=== PATIENT | male | born 1950 | race Caucasian/White ===

== ENCOUNTER 2019-01-24 16:21 | Inpatient (IN) | payer OTHER, MEDICARE ==
[~2019-01-24] VITALS: Ht 182.9 cm; Wt 80.1 kg
[~2019-01-24 16:21] MED LIST: CALC1.25T PO; CEPH500 PO; FURO40 PO; LACT10SY PO; MILK THISTLE; MORP30ER PO; OMEP20ER PO; SERT25 PO; SPIR50 PO; VITB100 PO
[2019-01-24] MEDS ORDERED: ACET325 PO (16:29)
[2019-01-24] MEDS ORDERED: AZIT250 PO (16:29)
[2019-01-24] MEDS ORDERED: BUME2 PO (16:30)
[2019-01-24] MEDS ORDERED: BACL10 PO (16:30)
[2019-01-24] MEDS ORDERED: CEFD300 PO (16:31)
[2019-01-24] MEDS ORDERED: CYAN500 PO (16:32)
[2019-01-24] MEDS ORDERED: GABA300 PO (16:32)
[2019-01-24] MEDS ORDERED: MELA3 PO (16:33)
[2019-01-24] MEDS ORDERED: PRAZ2 PO (16:34)
[2019-01-24] MEDS ORDERED: POTCHL20ER PO (16:34)
[2019-01-24] MEDS ORDERED: PROP10 PO (16:34)
[2019-01-24] MEDS ORDERED: RISP2 PO (16:35)
[2019-01-24 17:56] LABS: BASOPHILS ABSOLUTE AUTO 0.03 K/mm3 (0.00-0.23); BASOPHILS PERCENT AUTO 0 % (0-2); EOSINOPHILS ABSOLUTE AUTO 0.35 K/mm3 (0.00-0.68); EOSINOPHILS PERCENT AUTO 3 % (0-6); Hematocrit 36.6 % (37.0-53.0); Hemoglobin 11.9 g/dL (13.5-17.5); IMMATURE GRAN ABSOLUTE AUTO 0.14 K/mm3 (0.00-0.10); IMMATURE GRAN PERCENT AUTO 1 % (0-1); LYMPHOCYTES ABSOLUTE AUTO 0.97 K/mm3 (0.84-5.20); LYMPHOCYTES PERCENT AUTO 8 % (21-46); MONOCYTES PERCENT AUTO 9 % (4-13); Mean Corpuscular HGB 33.1 pg (26.0-34.0); Mean Corpuscular HGB Conc 32.5 g/dL (31.5-36.5); Mean Corpuscular Volume 102 fL (80-100); NEUTROPHILS ABSOLUTE AUTO 10.06 K/mm3 (1.96-9.15); NEUTROPHILS PERCENT AUTO 79 % (41-73); Platelet Count 229 K/mm3 (150-400); RDW Coefficient Variation 14.6 % (11.7-14.2); RDW Standard Deviation 55.5 fL (35.1-46.3); White Blood Cell Count 12.75 K/mm3 (4.00-11.30)
[2019-01-24 18:07] LABS: Prothrombin Time Results 10.6 Sec (9.7-11.5)
[2019-01-24 18:11] LABS: Alanine Aminotransfer (ALT/SGP 32 U/L (12-78); Albumin, Blood 2.6 g/dL (3.4-5.0); Albumin/Globulin Ratio 0.8 (0.8-1.8); Alk Phos 121 U/L (50-136); Anion Gap 7 mmol/L (6-16); Aspartate Aminotrans (AST/SGOT 41 U/L (12-37); Blood Urea Nitrogen 27 mg/dL (8-24); Bun/Creatinine Ratio 24.1 (12.0-20.0); CO2, Blood 28 mmol/L (21-32); Calcium, Blood 8.8 mg/dL (8.5-10.1); Chloride, Blood 104 mmol/L (98-108); Creatinine, Blood 1.12 mg/dL (0.60-1.20); Globulin, Blood 3.1 g/dL (2.2-4.0); Glomerular Filtration Rate >60 (60-); Glucose, Blood 84 mg/dL (70-99); Potassium, Blood 3.5 mmol/L (3.5-5.5); Sodium, Blood 139 mmol/L (136-145); Total Protein, Blood 5.7 g/dL (6.4-8.2)
[2019-01-24] MEDS ORDERED: FOLI1 PO (19:48)
[2019-01-24] MEDS ORDERED: FISH OIL 1,001000 MG PO (19:50)
--- NOTE | 2019-01-24 21:30 | NUR ---
RECEIVED HAND OFF FROM ER NURSE USING SBAR. TRANSPORTED TO ROOM 211 VIA STRETCHER. TRANSFERED TO BED WITH FULL STAFF ASSIST, TOLERATED WELL. ADMISSION ASSESSMENT IN PROGRESS. DENIES FURTHER NEEDS AT THIS TIME. SAFTY MEASURES IN PLACE. WILL CONTINUE TO MONITOR.
[2019-01-25 05:04] LABS: Hematocrit 34.8 % (37.0-53.0); Hemoglobin 11.3 g/dL (13.5-17.5); Mean Corpuscular HGB 33.2 pg (26.0-34.0); Mean Corpuscular HGB Conc 32.5 g/dL (31.5-36.5); Mean Corpuscular Volume 102 fL (80-100); Platelet Count 207 K/mm3 (150-400); RDW Coefficient Variation 14.8 % (11.7-14.2); RDW Standard Deviation 55.7 fL (35.1-46.3); White Blood Cell Count 8.91 K/mm3 (4.00-11.30)
--- NOTE | 2019-01-25 05:12 | NUR ---
TO KEEP PATIENT MOUTH MOIST, AFTER I OFFERED TO TAKE AWAY AT MIDNIGHT.
[2019-01-25 05:46] LABS: Anion Gap 7 mmol/L (6-16); Blood Urea Nitrogen 31 mg/dL (8-24); Bun/Creatinine Ratio 25.8 (12.0-20.0); CO2, Blood 27 mmol/L (21-32); Calcium, Blood 8.7 mg/dL (8.5-10.1); Chloride, Blood 105 mmol/L (98-108); Glomerular Filtration Rate >60 (60-); Glucose, Blood 112 mg/dL (70-99); Potassium, Blood 3.8 mmol/L (3.5-5.5); Sodium, Blood 139 mmol/L (136-145)
--- NOTE | 2019-01-25 06:40 | NUR ---
LYING ON RIGHT SIDE WITH EYES CLOSED. NO CHANGES SINCE ADMISSION TO UNIT. DENIES FURTHER NEEDS AT THIS TIME. SAFETY MEASURES IN PLACE. WILL GIVE HAND OFF TO ONCOMING SHIFT USING SBAR.
--- NOTE | 2019-01-25 09:33 | NUR ---
PT ASSESSMENT. PT REPORTS UNABLE TO WIGGLE TOES ON RIGHT FOOT AND MOVE RIGHT ANKLE. REPORTS THIS IS NORMAL. PT REPORTS USES CANE AT HOME TO AMBULATE. CONDOM CATH PLACED AT IN. IN PLACE, SECURED ON LEG, DRAINING, AND OFF FLOOR.
--- NOTE | 2019-01-25 11:36 | NUR ---
CONSULT: CONSULT CALLED TO ORTHOPEDIC STAVE CUTTER DOCTOR AT THIS TIME.
--- NOTE | 2019-01-25 18:24 | NUR ---
SHIFT SUMMARY PT EATING AND DRINKING WELL. PT HAS CONDOM CATH ON THAT WAS PLACED AT THE UT. CATH IN PLACE, SECURED TO LEG, DRAINING. NO BM TODAY. PT REPOSITIONED SEVERAL TIMES TODAY, BUT REFUSED REPOSITIONING AT OTHER TIMES. ASSISTED WITH ADL'S. DRESSINGS CHANGED TODAY. PT MEDICATED FOR PAIN PRN. AND VISITORS VISITED PT TODAY.
--- NOTE | 2019-01-26 08:02 | NUR ---
SHIFT SUMMARY PT A&O X4 T/O SHIFT. PT REPORTED SHORT, MILD SPASM TO LOWER EXT X1. PAIN IN BLE/PELVIS MANGED PER EMAR AND POSITIONING. LS CLEAR, I/S USE ENCOURAGED. NO ACUTE CHANGES. CONT.-OX IN PLACE; O2 SATS GREATER THAN 90% T/O SHIFT; PT DENIES SOB AND CP. DRESSINGS TO BUE DRY AND INTACT WITH SCANT SS DRAINAGE. PT ASSISTED WITH REPOSITIONING T/O SHIFT; PT ABLE TO MAKE SLIGHT ADJUSTMENTS ON OWN EARLY AM. SCD'S TO BLE'S. CALL LIGHT IN REACH; PT DEMONSTRATES USE. REPORT GIVEN TO DAY SHIFT RN.
--- NOTE | 2019-01-26 11:07 | NUR ---
LASIX/PAIN MANAGEMENT DR. KLEIN NOTIFIED THAT PT TAKES LASIX 80MG DAILY AND WOULD LIKE THAT RESTARED WHILE HE IS IN THE HOSPITAL. DR. KLEIN STATED SHE WOULD START A LOWER DOSE SINCE PT'S BP HAS BEEN LOW. DISCUSSED THAT PT HAD PAIN MANAGEMENT ISSUES WHILE WORKING WITH THERAPY. DR. KLEIN REPORTED SHE WOULD LOOK AT INCREASING PAIN MEDICATION. WILL CONTINUE TO MONITOR.
--- NOTE | 2019-01-26 18:18 | NUR ---
SHIFT SUMMARY PAIN HAS BEEN MANAGED WITH PO PAIN MEDICATION. PT IS A 1 ASSIST WITH GAIT BELT AND WALKER. HE HAS DIFFICULTY AMBULATING/GETTING TO A STANDING POSITION R/T PAIN. HE IS ABLE TO DO TRANSFERS WELL BUT IS HAS DIFFICULTY AMBULATING. VSS. WILL MONITOR UNTIL REPORT TO ONCOMING RN.
[2019-01-27 05:12] LABS: BASOPHILS ABSOLUTE AUTO 0.06 K/mm3 (0.00-0.23); BASOPHILS PERCENT AUTO 1 % (0-2); EOSINOPHILS ABSOLUTE AUTO 0.49 K/mm3 (0.00-0.68); EOSINOPHILS PERCENT AUTO 5 % (0-6); Hematocrit 33.3 % (37.0-53.0); Hemoglobin 10.8 g/dL (13.5-17.5); IMMATURE GRAN ABSOLUTE AUTO 0.16 K/mm3 (0.00-0.10); IMMATURE GRAN PERCENT AUTO 2 % (0-1); LYMPHOCYTES ABSOLUTE AUTO 1.26 K/mm3 (0.84-5.20); LYMPHOCYTES PERCENT AUTO 12 % (21-46); MONOCYTES ABSOLUTE AUTO 1.24 K/mm3 (0.16-1.47); MONOCYTES PERCENT AUTO 11 % (4-13); Mean Corpuscular HGB 33.1 pg (26.0-34.0); Mean Corpuscular HGB Conc 32.4 g/dL (31.5-36.5); Mean Corpuscular Volume 102 fL (80-100); Mean Platelet Volume 9.2 fL (9.1-12.4); NEUTROPHILS PERCENT AUTO 71 % (41-73); Platelet Count 181 K/mm3 (150-400); RDW Coefficient Variation 14.9 % (11.7-14.2); RDW Standard Deviation 56.6 fL (35.1-46.3); Red Blood Cell Count 3.26 M/mm3 (4.30-5.90); White Blood Cell Count 10.91 K/mm3 (4.00-11.30)
[2019-01-27 05:32] LABS: Anion Gap 8 mmol/L (6-16); Blood Urea Nitrogen 32 mg/dL (8-24); Bun/Creatinine Ratio 27.8 (12.0-20.0); CO2, Blood 24 mmol/L (21-32); Calcium, Blood 8.3 mg/dL (8.5-10.1); Chloride, Blood 102 mmol/L (98-108); Creatinine, Blood 1.15 mg/dL (0.60-1.20); Glomerular Filtration Rate >60 (60-); Glucose, Blood 98 mg/dL (70-99); Potassium, Blood 4.5 mmol/L (3.5-5.5); Sodium, Blood 134 mmol/L (136-145)
--- NOTE | 2019-01-27 07:34 | NUR ---
SUMMARY PT SLEPT QUIETLY TONIGHT. UNABLE TO TOLERATE CPAP.PT REPORTS MOVEMENT IS IMPROVING L LEG.
[2019-01-27] MEDS ORDERED: ASPI325EC PO (15:46)
[2019-01-27] MEDS ORDERED: Roxicodone5 MG PO (15:49)
--- NOTE | 2019-01-27 15:58 | NUR ---
DR. KLEIN NOTIFIED THAT DR. BELTRAN WANTED TO HOLD DISCHARGE UNTIL TOMORROW FOR FURTHER PHYSICAL THERAPY AND PAIN MANAGEMENT.
--- NOTE | 2019-01-27 18:48 | NUR ---
SHIFT SUMMARY PT ADMITTED WITH PUBIC FRACTURE, WALKER 1 PERSON ASSIST, CATHETER IN PLACE, PT CAN AMBULATE TO [facility] WITH ASSISTANCE.DIET: "HEPATIC (FS)" CONDOM CATH IN PLACE, HAS DIFFICULTY WITH CPAP, TEDS AND SCDs IN PLACE, PT IS DNR, DISCHARGE PLANNED FOR TOMORROW AM.
--- NOTE | 2019-01-27 19:42 | NUR ---
SHIFT SUMMARY PAIN HAS BEEN MANAGED WITH PO PAIN MEDICATION. OXY DOES CAUSE DROWSINESS SO NAPROXEN WILL BE STARTED TONIGHT. PT IS A 1 ASSIST WITH GAIT BELT AND WALKER. HE IS ABLE TO AMBULATE SHORT DISTANCES. PLAN FOR PT TO HAVE THERAPY TOMORROW THEN GO HOME. VSS. REPORT GIVEN TO SUZETTE TOVAR.
--- NOTE | 2019-01-28 04:54 | NUR ---
PT HAD NO ACUTE CHANGES T/O NIGHT. VSS. LUNGS CLEAR T/O, SATS >90% ON RA, CPAP IN PLACE WHILE SLEEPING. PT DECLINED NEED FOR PAIN MEDS T/O NIGHT. PT UP OOB W/FWW+SBA. NO CHANGE TO BLE EDEMA. PLAN TO D/C HOME TODAY. PT USING CALL LIGHT FOR ASSISTANCE, WILL CONT TO MONITOR UNTIL REP GIVEN TO ONCOMING RN.
--- NOTE | 2019-01-28 15:00 | NUR ---
DISCHARGE INSTRUCTIONS COMPLETED AND DISCUSSED WITH PT EXPRESSING UNDERSTANDING. NO NEW SCRIPTS EXCEPT OXYCODONE WHICH ORIGINAL GIVEN TO TO BE FILLED. PT ABLE TO TRANSFER SELF TO W/C AND THEN TO CAR SEAT WITH MINIMAL TO NO ASSISTANCE. WAS SLOW AND METHODICAL WITH PROCESS. TO CURB VIA W/C.
== END 2019-01-28 14:50 | disposition home health service (06) | DRG 184 ==
LOC: ER 16:21 → SURS 20:33
PROVIDERS: Emergency Medicine; Nurse Practitioner Acute Care; ADMIT Surgery
DX: S22.42XA Multiple fractures of ribs, left side, initial encounter for closed fracture (principal); S32.592A Other specified fracture of left pubis, initial encounter for closed fracture; E87.1 Hypo-osmolality and hyponatremia; F32.9 Major depressive disorder, single episode, unspecified; I95.9 Hypotension, unspecified; J44.9 Chronic obstructive pulmonary disease, unspecified; K74.60 Unspecified cirrhosis of liver; R91.1 Solitary pulmonary nodule; W11.XXXA Fall on and from ladder, initial encounter; M79.2 Neuralgia and neuritis, unspecified; G47.33 Obstructive sleep apnea (adult) (pediatric); D63.8 Anemia in other chronic diseases classified elsewhere; G62.9 Polyneuropathy, unspecified; Z66 Do not resuscitate; Z87.891 Personal history of nicotine dependence
CPT/HCPCS: 36415; 70450; 71260; 72125; 73564; 74177; 80048; 80053; 85025; 85027; 85610; 85730; 86850; 86900; 86901; 94760; 94762; 96374-59; 96375-59; 97110; 97116; 97161; 97166; 97530; 97535; 99285-25; J2405; J3010; Q9967

== ENCOUNTER 2019-03-31 16:16 | Inpatient (IN) | payer OTHER, MEDICARE ==
[~2019-03-31] VITALS: Ht 182.9 cm; Wt 95.8 kg
[~2019-03-31 16:16] MED LIST changes: +ACET325 PO; +ASPI325EC PO; +AZIT250 PO; +BACL10 PO; +BUME2 PO; +CEFD300 PO; +CYAN500 PO; +FISH OIL 1,001000 MG PO; +FOLI1 PO; +GABA300 PO; +MELA3 PO; +POTCHL20ER PO; +PRAZ2 PO; +PROP10 PO; +RISP2 PO; +Roxicodone5 MG PO
[2019-03-31] MEDS ORDERED: SAM E PO (17:27)
[2019-03-31] MEDS ORDERED: Milk Thistle175 MG PO (17:27)
[2019-03-31] MEDS ORDERED: LO-DOSE ASPIRIN81 MG PO (17:28)
[2019-03-31] MEDS ORDERED: Furosemide40 MG PO (17:28)
[2019-03-31] MEDS ORDERED: PROBIOTIC-10 11 EACH PO (17:29)
[2019-03-31] MEDS ORDERED: PRESERVISION A1 EACH PO (17:30)
[2019-03-31] MEDS ORDERED: Aldactone100 MG PO (17:31)
[2019-03-31] MEDS ORDERED: TRAM50 PO (18:36)
[2019-03-31] MEDS ORDERED: NAPR500 PO (18:37)
[2019-03-31 19:14] LABS: Albumin, Blood 2.2 g/dL (3.4-5.0); Anion Gap 8 mmol/L (6-16); Blood Urea Nitrogen 67 mg/dL (8-24); Bun/Creatinine Ratio 35.6 (12.0-20.0); CO2, Blood 26 mmol/L (21-32); Calcium, Blood 8.4 mg/dL (8.5-10.1); Chloride, Blood 106 mmol/L (98-108); Creatinine, Blood 1.88 mg/dL (0.60-1.20); Glomerular Filtration Rate 38 (60-); Glucose, Blood 76 mg/dL (70-99); Potassium, Blood 4.2 mmol/L (3.5-5.5); Sodium, Blood 140 mmol/L (136-145)
[2019-03-31 19:16] LABS: Phosphorus, Blood 4.5 mg/dL (2.5-4.9)
[2019-04-01 03:07] LABS: Hematocrit 35.4 % (37.0-53.0); Hemoglobin 11.4 g/dL (13.5-17.5); Mean Corpuscular HGB 31.9 pg (26.0-34.0); Mean Corpuscular HGB Conc 32.2 g/dL (31.5-36.5); Mean Corpuscular Volume 99 fL (80-100); Platelet Count 225 K/mm3 (150-400); RDW Coefficient Variation 15.8 % (11.7-14.2); RDW Standard Deviation 57.9 fL (35.1-46.3); Red Blood Cell Count 3.57 M/mm3 (4.30-5.90); White Blood Cell Count 10.36 K/mm3 (4.00-11.30)
[2019-04-01 03:33] LABS: Albumin, Blood 2.1 g/dL (3.4-5.0); Albumin/Globulin Ratio 0.7 (0.8-1.8); Bilirubin, Total 0.5 mg/dL (0.1-1.0); Bun/Creatinine Ratio 39.1 (12.0-20.0); Creatinine, Blood 1.74 mg/dL (0.60-1.20); Potassium, Blood 4.2 mmol/L (3.5-5.5); Total Protein, Blood 5.1 g/dL (6.4-8.2)
--- NOTE | 2019-04-01 06:02 | NUR ---
0602: PT TO IMAGING FOR 2 VIEW CHEST XRAY, AWAIT RETURN.
--- NOTE | 2019-04-01 06:35 | NUR ---
0635: PT RETURNS FROM IMAGING. AUDIBLE EXP WHEEZE, ROOM AIR SPO2 95%. MEDICATED WITH PRN TRAMADOL FOR PELVIC, BACK PAIN.
--- NOTE | 2019-04-01 18:40 | NUR ---
SUMMARY PATIENT WITH AUDIBLE WHEEZES AT TIMES WHICH HE STATES IS NORMAL FOR HIM. PATIENT FEELS THAT OVERALL HE IS BREATHING BETTER TODAY THAN YESTERDAY. PATIENT WITH BILAT LOWER EXTREMITY EDEMA AND ABD EDEMA. PATIENT WITH BILATERAL ARM EDEMA AND RIGHT ARM MORE EDEMATOUS THAN LEFT. PATIENT DENIES PAIN TO LEFT ARM AND NO REDNESS NOTED
[2019-04-02 04:42] LABS: BASOPHILS ABSOLUTE AUTO 0.07 K/mm3 (0.00-0.23); BASOPHILS PERCENT AUTO 1 % (0-2); EOSINOPHILS ABSOLUTE AUTO 0.53 K/mm3 (0.00-0.68); EOSINOPHILS PERCENT AUTO 6 % (0-6); Hematocrit 32.2 % (37.0-53.0); Hemoglobin 10.2 g/dL (13.5-17.5); IMMATURE GRAN ABSOLUTE AUTO 0.12 K/mm3 (0.00-0.10); IMMATURE GRAN PERCENT AUTO 1 % (0-1); LYMPHOCYTES ABSOLUTE AUTO 1.18 K/mm3 (0.84-5.20); LYMPHOCYTES PERCENT AUTO 13 % (21-46); MONOCYTES ABSOLUTE AUTO 1.25 K/mm3 (0.16-1.47); MONOCYTES PERCENT AUTO 14 % (4-13); Mean Corpuscular HGB 31.2 pg (26.0-34.0); Mean Corpuscular HGB Conc 31.7 g/dL (31.5-36.5); Mean Corpuscular Volume 99 fL (80-100); Mean Platelet Volume 9.3 fL (9.1-12.4); NEUTROPHILS ABSOLUTE AUTO 5.81 K/mm3 (1.96-9.15); NEUTROPHILS PERCENT AUTO 65 % (41-73); Platelet Count 214 K/mm3 (150-400); RDW Coefficient Variation 15.8 % (11.7-14.2); RDW Standard Deviation 56.3 fL (35.1-46.3); Red Blood Cell Count 3.27 M/mm3 (4.30-5.90); White Blood Cell Count 8.96 K/mm3 (4.00-11.30)
[2019-04-02 05:08] LABS: Albumin, Blood 1.9 g/dL (3.4-5.0); Anion Gap 8 mmol/L (6-16); Blood Urea Nitrogen 64 mg/dL (8-24); Bun/Creatinine Ratio 37.4 (12.0-20.0); CO2, Blood 24 mmol/L (21-32); Calcium, Blood 7.9 mg/dL (8.5-10.1); Chloride, Blood 107 mmol/L (98-108); Creatinine, Blood 1.71 mg/dL (0.60-1.20); Glomerular Filtration Rate 42 (60-); Glucose, Blood 113 mg/dL (70-99); Phosphorus, Blood 4.3 mg/dL (2.5-4.9); Potassium, Blood 4.1 mmol/L (3.5-5.5); Sodium, Blood 139 mmol/L (136-145)
--- NOTE | 2019-04-02 06:41 | NUR ---
SHIFT SUMMARY LYING IN SEMI FOWLERS WHILE WATCHING TV AND DRINKING A CUP OF COFFEE. DENIES PAIN OR DISCOMFORT AT THIS TIME. NO FURTHER CHANGES SINCE START OF SHIFT. SAFETY MEASURES IN PLACE. WILL CONTINUE TO MONITOR.
--- NOTE | 2019-04-02 17:33 | NUR ---
SHIFT SUMMARY PATIENT STATES APAP EFFECTIVE FOR PELVIC PAIN. HAS SLEPT INTERMITANTLY T/O SHIFT. UP TO CHAIR AND UP TO AMBULATE IN [facility] W/SBA. DENIES SOB. TOLERATING PO. NO C/O AT THIS TIME.
[2019-04-03 04:25] LABS: Hematocrit 31.7 % (37.0-53.0); Hemoglobin 10.2 g/dL (13.5-17.5); Mean Corpuscular HGB 31.2 pg (26.0-34.0); Mean Corpuscular HGB Conc 32.2 g/dL (31.5-36.5); Mean Corpuscular Volume 97 fL (80-100); Mean Platelet Volume 8.9 fL (9.1-12.4); Platelet Count 227 K/mm3 (150-400); RDW Coefficient Variation 15.9 % (11.7-14.2); RDW Standard Deviation 55.3 fL (35.1-46.3); Red Blood Cell Count 3.27 M/mm3 (4.30-5.90); White Blood Cell Count 9.24 K/mm3 (4.00-11.30)
[2019-04-03 04:45] LABS: Albumin, Blood 1.9 g/dL (3.4-5.0); Anion Gap 5 mmol/L (6-16); Blood Urea Nitrogen 59 mg/dL (8-24); Bun/Creatinine Ratio 37.6 (12.0-20.0); CO2, Blood 28 mmol/L (21-32); Calcium, Blood 8.2 mg/dL (8.5-10.1); Chloride, Blood 105 mmol/L (98-108); Creatinine, Blood 1.57 mg/dL (0.60-1.20); Glomerular Filtration Rate 47 (60-); Glucose, Blood 107 mg/dL (70-99); Phosphorus, Blood 3.7 mg/dL (2.5-4.9); Potassium, Blood 3.9 mmol/L (3.5-5.5); Sodium, Blood 138 mmol/L (136-145)
--- NOTE | 2019-04-03 05:13 | NUR ---
SHIFT SUMMARY LYING IN SEMI FOWLERS WITH EYES CLOSED. RESTED WITH EASE WHILE ON CPAP. AMBULAYED IN ACHARYA. SIGNIFICANT IMPROVEMET IN SCROTAL EDEMA. DENIES PAIN OR DISCOMFORT AT THIS TIME. NO FURTHER CHANGES SINCE START OF SHIFT. SAFETY MEASURES IN PLACE. WILL CONTINUE TO MONITOR.
[2019-04-03] MEDS ORDERED: FURO80 PO (14:19)
[2019-04-03] MEDS ORDERED: POTCHL20ER PO (14:23)
[2019-04-03] MEDS ORDERED: DILT180 PO (14:28)
[2019-04-03] MEDS ORDERED: MIRALAX17 GM PO (14:29)
--- NOTE | 2019-04-03 16:11 | NUR ---
PATIENT D/C'D HOME WITH SPOUSE AT THIS TIME. PATIENT AND SPOUSE STATE UNDERSTANDING OF MEDS, DIET, CHF MONITORING (DAILY WEIGHT, FLUID RESTRICTION, ETC.) F/U APPT NEXT WEEK WITH [facility], ETC. NO C/O AT THIS TIME.
[2019-07-07] MEDS ORDERED: Bumetanide2 MG PO (21:23)
[2019-08-03] MEDS ORDERED: BACL10 PO (12:38)
[2019-08-03] MEDS ORDERED: ELIQUIS5 MG PO (12:38)
[2019-08-03] MEDS ORDERED: FERSU300 PO (12:39)
[2019-08-03] MEDS ORDERED: Bumetanide2 MG PO (12:39)
[2019-08-03] MEDS ORDERED: Vitamin B-122000 MCG PO (12:39)
[2019-08-03] MEDS ORDERED: MELA3 PO (12:40)
[2019-08-03] MEDS ORDERED: POTCHL20ER PO (12:40)
[2019-08-03] MEDS ORDERED: GABA300 PO (12:40)
[2019-08-03] MEDS ORDERED: METO25ER PO (12:40)
[2019-08-03] MEDS ORDERED: FOLI1 PO (12:40)
[2019-08-03] MEDS ORDERED: SERT50 PO (12:41)
[2019-08-03] MEDS ORDERED: RISP2 PO (12:41)
[2019-08-03] MEDS ORDERED: Prazosin HCl2 MG PO (12:41)
[2019-08-03] MEDS ORDERED: SPIR25 PO (12:42)
[2019-08-03] MEDS ORDERED: Thiamine HCl100 MG PO (12:42)
[2019-08-03] MEDS ORDERED: TRAM50 PO (12:42)
[2019-08-03] MEDS ORDERED: Fish Oil 10001000 MG PO (14:33)
[2019-08-03] MEDS ORDERED: SAM E PO (14:34)
[2019-08-03] MEDS ORDERED: PROBIOTIC1 EAC4 PO (14:34)
[2019-08-04] MEDS ORDERED: Lopressor 25 mg25 MG PO (13:46)
== END 2019-04-03 16:12 | disposition home or self-care (01) | DRG 291 ==
LOC: ER 16:16 → SURS 17:49
PROVIDERS: ADMIT Internal Medicine
DX: I11.0 Hypertensive heart disease with heart failure (principal); I50.31 Acute diastolic (congestive) heart failure; N17.9 Acute kidney failure, unspecified; I48.0 Paroxysmal atrial fibrillation; G47.33 Obstructive sleep apnea (adult) (pediatric); K74.60 Unspecified cirrhosis of liver; J44.9 Chronic obstructive pulmonary disease, unspecified; F43.10 Post-traumatic stress disorder, unspecified; G62.9 Polyneuropathy, unspecified; E78.5 Hyperlipidemia, unspecified; G89.29 Other chronic pain; M54.9 Dorsalgia, unspecified; E88.09 Other disorders of plasma-protein metabolism, not elsewhere classified; E66.9 Obesity, unspecified; F32.9 Major depressive disorder, single episode, unspecified; Z66 Do not resuscitate; F17.210 Nicotine dependence, cigarettes, uncomplicated; Z91.14 Patient's other noncompliance with medication regimen; Z79.82 Long term (current) use of aspirin; Z79.899 Other long term (current) drug therapy
CPT/HCPCS: 36415; 71046; 80053; 80069; 83880; 84484; 85025; 85027; 93005; 93010; 93306; 94640; 94660; 94762; 97162; 97165; 97530; 97535; 99285; A9270; J1650; J1940

== ENCOUNTER 2019-04-10 20:27 | Inpatient (IN) | payer MEDICARE ==
[~2019-04-10] VITALS: Ht 182.9 cm; Wt 91.1 kg
[~2019-04-10 20:27] MED LIST changes: +Aldactone100 MG PO; +DILT180 PO; +FURO80 PO; +Furosemide40 MG PO; +LO-DOSE ASPIRIN81 MG PO; +MIRALAX17 GM PO; +Milk Thistle175 MG PO; +NAPR500 PO; +PRESERVISION A1 EACH PO; +PROBIOTIC-10 11 EACH PO; +SAM E PO; +TRAM50 PO
[2019-04-10 21:07] LABS: BASOPHILS ABSOLUTE AUTO 0.05 K/mm3 (0.00-0.23); BASOPHILS PERCENT AUTO 0 % (0-2); EOSINOPHILS ABSOLUTE AUTO 0.36 K/mm3 (0.00-0.68); EOSINOPHILS PERCENT AUTO 3 % (0-6); Hematocrit 36.5 % (37.0-53.0); Hemoglobin 11.8 g/dL (13.5-17.5); IMMATURE GRAN ABSOLUTE AUTO 0.16 K/mm3 (0.00-0.10); IMMATURE GRAN PERCENT AUTO 1 % (0-1); LYMPHOCYTES PERCENT AUTO 9 % (21-46); MONOCYTES PERCENT AUTO 11 % (4-13); Mean Corpuscular HGB 31.5 pg (26.0-34.0); Mean Corpuscular HGB Conc 32.3 g/dL (31.5-36.5); Mean Corpuscular Volume 97 fL (80-100); Mean Platelet Volume 8.6 fL (9.1-12.4); NEUTROPHILS ABSOLUTE AUTO 10.52 K/mm3 (1.96-9.15); NEUTROPHILS PERCENT AUTO 76 % (41-73); Platelet Count 296 K/mm3 (150-400); RDW Coefficient Variation 15.9 % (11.7-14.2); RDW Standard Deviation 55.8 fL (35.1-46.3); Red Blood Cell Count 3.75 M/mm3 (4.30-5.90); White Blood Cell Count 13.89 K/mm3 (4.00-11.30)
[2019-04-10] MEDS ORDERED: TORSE20 PO (21:12)
[2019-04-10] MEDS ORDERED: B-1100 MG PO (21:13)
[2019-04-10] MEDS ORDERED: ELIQUIS2.5 MG (21:19)
[2019-04-10 21:29] LABS: Alanine Aminotransfer (ALT/SGP 30 U/L (12-78); Albumin, Blood 2.2 g/dL (3.4-5.0); Albumin/Globulin Ratio 0.7 (0.8-1.8); Alk Phos 226 U/L (50-136); Anion Gap 8 mmol/L (6-16); Aspartate Aminotrans (AST/SGOT 38 U/L (12-37); Bilirubin, Total 0.7 mg/dL (0.1-1.0); Blood Urea Nitrogen 54 mg/dL (8-24); Bun/Creatinine Ratio 38.3 (12.0-20.0); CO2, Blood 30 mmol/L (21-32); Calcium, Blood 8.2 mg/dL (8.5-10.1); Chloride, Blood 102 mmol/L (98-108); Creatinine, Blood 1.41 mg/dL (0.60-1.20); Globulin, Blood 3.2 g/dL (2.2-4.0); Glomerular Filtration Rate 53 (60-); Glucose, Blood 142 mg/dL (70-99); Potassium, Blood 3.2 mmol/L (3.5-5.5); Sodium, Blood 140 mmol/L (136-145); Total Protein, Blood 5.4 g/dL (6.4-8.2); Troponin I <0.015 ng/mL (0.000-0.040)
[2019-04-10 22:59] LABS: International Normalized Ratio 1.01; Prothrombin Time Results 10.7 Sec (9.7-11.5)
[2019-04-11 01:51] LABS: Hematocrit 33.1 % (37.0-53.0); Hemoglobin 10.7 g/dL (13.5-17.5); Mean Corpuscular HGB 31.8 pg (26.0-34.0); Mean Corpuscular HGB Conc 32.3 g/dL (31.5-36.5); Mean Corpuscular Volume 99 fL (80-100); Mean Platelet Volume 8.8 fL (9.1-12.4); Platelet Count 251 K/mm3 (150-400); RDW Coefficient Variation 15.9 % (11.7-14.2); RDW Standard Deviation 56.7 fL (35.1-46.3); Red Blood Cell Count 3.36 M/mm3 (4.30-5.90); White Blood Cell Count 12.79 K/mm3 (4.00-11.30)
[2019-04-11 02:12] LABS: Albumin, Blood 1.8 g/dL (3.4-5.0); Albumin/Globulin Ratio 0.6 (0.8-1.8); Bilirubin, Total 0.3 mg/dL (0.1-1.0); Bun/Creatinine Ratio 38.1 (12.0-20.0); Calcium, Blood 7.8 mg/dL (8.5-10.1); Creatinine, Blood 1.34 mg/dL (0.60-1.20); Globulin, Blood 2.9 g/dL (2.2-4.0); Potassium, Blood 3.4 mmol/L (3.5-5.5); Total Protein, Blood 4.7 g/dL (6.4-8.2)
--- NOTE | 2019-04-11 08:29 | NUR ---
SUMMARY ADMITTED DURING NIGHT, MEDS GIVEN PER ORDERS,PT ALERT,WATCHING TV THIS AM.
--- NOTE | 2019-04-11 18:21 | NUR ---
SHIFT SUMMARY: PT A/O X 3 THIS SHIFT WITH NO C/O PAIN. PT DENIES SOB AND N/V. AT BEDSIDE THIS AFTER NOON. 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
[2019-04-11 20:44] LABS: Adenovirus Not Detected (NOT DETECT); Bordetella pertussis Not Detected (NOT DETECT); Chlamydophila pneumoniae Not Detected (NOT DETECT); Coronavirus 229E Not Detected (NOT DETECT); Coronavirus HKU1 Not Detected (NOT DETECT); Coronavirus NL63 Not Detected (NOT DETECT); Coronavirus OC43 Not Detected (NOT DETECT); Human Metapneumovirus Not Detected (NOT DETECT); Human Rhinovirus/Enterovirus Not Detected (NOT DETECT); Influenza A Not Detected (NOT DETECT); Influenza A/2009-H1 Not Detected (NOT DETECT); Influenza A/H1 Not Detected (NOT DETECT); Influenza A/H3 Not Detected (NOT DETECT); Influenza B Not Detected (NOT DETECT); Mycoplasma pneumoniae Not Detected (NOT DETECT); Parainfluenza Virus 1 Not Detected (NOT DETECT); Parainfluenza Virus 2 Not Detected (NOT DETECT); Parainfluenza Virus 3 Not Detected (NOT DETECT); Parainfluenza Virus 4 Not Detected (NOT DETECT); Respiratory Syncytial Virus Not Detected (NOT DETECT)
[2019-04-12 04:57] LABS: Hematocrit 32.3 % (37.0-53.0); Hemoglobin 10.3 g/dL (13.5-17.5); Mean Corpuscular HGB 31.5 pg (26.0-34.0); Mean Corpuscular HGB Conc 31.9 g/dL (31.5-36.5); Mean Corpuscular Volume 99 fL (80-100); Mean Platelet Volume 8.9 fL (9.1-12.4); Platelet Count 224 K/mm3 (150-400); RDW Standard Deviation 57.5 fL (35.1-46.3); Red Blood Cell Count 3.27 M/mm3 (4.30-5.90); White Blood Cell Count 9.18 K/mm3 (4.00-11.30)
[2019-04-12 05:22] LABS: Anion Gap 6 mmol/L (6-16); Blood Urea Nitrogen 45 mg/dL (8-24); Bun/Creatinine Ratio 36.9 (12.0-20.0); CO2, Blood 28 mmol/L (21-32); Calcium, Blood 8.3 mg/dL (8.5-10.1); Chloride, Blood 105 mmol/L (98-108); Creatinine, Blood 1.22 mg/dL (0.60-1.20); Glomerular Filtration Rate >60 (60-); Glucose, Blood 100 mg/dL (70-99); Potassium, Blood 4.2 mmol/L (3.5-5.5); Sodium, Blood 139 mmol/L (136-145)
--- NOTE | 2019-04-12 07:44 | NUR ---
04/12/19 0600 CHEERFUL THIS AM AND WATCHING TV. DENIES ANY S/S OR DISCOMFORT. SLEPT FAIRLY WELL "ON AND OFF". VITALS STABLE.
--- NOTE | 2019-04-12 17:47 | NUR ---
SHIFT SUMMARY: PT HAS BEEN A/O X 3 AT BASELINE TODAY AND PLEASANT AND COOPERATIVE WITH CARE. NO C/O PAIN. BLE ARE EDEMATOUS AND ELEVATED ON PILLOWS. SCROTUM WAS ALSO ELEVATED TO HELP WITH DEPENDENT SWELLING. PT HAS HAD SEVERAL VISITORS THROUGHOUT THE DAY INCLUDING HIS WHO STATES SHE WAS GOING TO CHIEF HYDROELECTRIC STATION OPERATOR HIS HOME CPAP AND BRING IT BACK FOR HIM TO USE TONIGHT. PT IS RESTING IN BED AND CALLS FOR HELP WHEN NEEDED.
--- NOTE | 2019-04-13 05:04 | NUR ---
SUMMARY: A/OX4, PLEASANT AND SPECIFIES NEEDS. PT/OT NEEDS CONSULTED D/T DECONDITIONING AND BEDREST AT THIS TIME. HE HAS GENERAL ANASARCA W/BLE EDEMA AND SIGNIFICANT SCROTAL EDEMA. LEGS ELEVATED ON PILLOWS AND SCROTUM ELEVATED ON TOWEL ROLL. HE ENJOYED POPSICLES T/O NOCTE, DENIED PAIN/COMPLAINTS AND SLEPT MOST OF NOCTE. IV ABX RECIEVED. FAMILY BROUGHT IN HOME CPAP AND PT TOLERATED IT W/CONT BIOX COMMENCED. PT REMAINS A.FLUTTER ON TELE W/HR 100'S THIS SHIFT. HIS HR WAS SLIGHTLY MORE ELEVATED W/HIGH OF 130'S OBSERVED BUT THIS TRENDED DOWNWARD SPONTANEOUSLY. NO ACUTE CHANGES, VSS/AFEBRILE. WCTM AND REPORT TO DAY RN.
[2019-04-13 05:23] LABS: Anion Gap 5 mmol/L (6-16); Blood Urea Nitrogen 36 mg/dL (8-24); Bun/Creatinine Ratio 32.1 (12.0-20.0); CO2, Blood 29 mmol/L (21-32); Calcium, Blood 8.5 mg/dL (8.5-10.1); Chloride, Blood 103 mmol/L (98-108); Creatinine, Blood 1.12 mg/dL (0.60-1.20); Glomerular Filtration Rate >60 (60-); Glucose, Blood 103 mg/dL (70-99); Potassium, Blood 4.3 mmol/L (3.5-5.5); Sodium, Blood 137 mmol/L (136-145)
[2019-04-13] MEDS ORDERED: BUME2 PO (11:59)
[2019-04-13] MEDS ORDERED: PROP10 PO (12:02)
[2019-04-13] MEDS ORDERED: B-121000 MC2 PO (12:03)
[2019-04-13] MEDS ORDERED: PRAZ2 PO (12:04)
[2019-04-13] MEDS ORDERED: A AND D OINTM42.5 GM TOP (12:05)
[2019-04-13] MEDS ORDERED: BACL10 PO (12:06)
[2019-04-13] MEDS ORDERED: Naproxen250 MG PO (12:06)
[2019-04-13] MEDS ORDERED: Dentagel56 GM DT (12:09)
--- NOTE | 2019-04-13 17:14 | NUR ---
SHIFT SUMMARY: PT IS A/O X 3 AT BASELINE THIS SHIFT WITH NO C/O PAIN. FAMILY WAS IN ROOM ON AND OFF THROUGHOUT THE DAY AND CONTINUES TO BE A GOOD SUPPORT SYSTEM FOR HIM. PT WAS UP WORKING WITH THERAPIES AND AMBULATING WITH WALKER AND X 1 ASSIST. PT STATED THAT SNF WOULD BE BENEFICIAL FOR PT AND HE IS AGREEABLE WITH CURRENT PLAN OF CARE. PT HAS NAPPED OFTEN TODAY AND STATED THAT HE DID NOT SLEEP WELL LAST NIGHT. PT IS RESTING IN BED WATCHING TV AND USES CALL LIGHT WHEN NEEDED.
--- NOTE | 2019-04-14 05:59 | NUR ---
SUMMARY: A/OX4, CALLS APPROPRIATELY AND SPECIFIES NEEDS. PT/OT HAD PT OOB YESTERDAY AND HE WILL LIKELY D/C TODAY TO [facility] FOR [facility]. HE CONT'S W/GENERAL ANASARCA, BLE AND SCROTAL EDEMA BUT THIS IS IMPROVING. PT HAVING GOOD OUTPUT W/DIURESIS. HE REMAINS AFLUTTER AT 100'S BPM AND CONT PULSE OX INTACT. PT TOLERATED CPAP AT HS AND RT PROVIDED BX MEDS RX'D. PT DENIED PAIN AND COMPLAINTS. VSS/AFEBRILE AND NO ACUTE CHANGE. WCTM AND REPORT TO DAY RN.
--- NOTE | 2019-04-14 15:56 | NUR ---
FACILITY TRANSFER: PATIENT COMFORTABLE THROUGHOUT THE SHIFT. PATIENT AMBULATED IN THE A[facility] WITH PT. DENIED SOB OR DISCOMFORT. STEADY ON HIS FEET. PATIENT UP TO THE CHAIR THIS AFTERNOON WITH FEET ELEVATED. PATIENT CONTINUED TO HAVE A HEART RATE IN THE TEENS AND 120'S. PATIENT REPORTED HIS HEART RATE HAS BEEN THIS WAY "FOR A WHILE". DENIES DIZZINESS, CHEST PAIN, OR CHEST DISCOMFORT. PATIENT DISCHARGED THIS AFTERNOON TO [facility]. REPORT CALLED TO RN. NOTIFIED THAT THE PATIENT HAS AN APPOINTMENT TOMORROW AT 10AM WITH THE [place] DISCHARGE SCRIPT IN PACKET FOR THE FACILITY. PATIENT DISCHARGED IN WHEELCHAIR WITH [facility]UMP[employer]ST[facility]. PATIENT STABLE AT TIME OF DISCHARGE.
[2019-07-07] MEDS ORDERED: Bumetanide2 MG PO (21:23)
[2019-08-03] MEDS ORDERED: ELIQUIS5 MG PO (12:38)
[2019-08-03] MEDS ORDERED: BACL10 PO (12:38)
[2019-08-03] MEDS ORDERED: Vitamin B-122000 MCG PO (12:39)
[2019-08-03] MEDS ORDERED: Bumetanide2 MG PO (12:39)
[2019-08-03] MEDS ORDERED: FERSU300 PO (12:39)
[2019-08-03] MEDS ORDERED: METO25ER PO (12:40)
[2019-08-03] MEDS ORDERED: MELA3 PO (12:40)
[2019-08-03] MEDS ORDERED: GABA300 PO (12:40)
[2019-08-03] MEDS ORDERED: POTCHL20ER PO (12:40)
[2019-08-03] MEDS ORDERED: FOLI1 PO (12:40)
[2019-08-03] MEDS ORDERED: SERT50 PO (12:41)
[2019-08-03] MEDS ORDERED: RISP2 PO (12:41)
[2019-08-03] MEDS ORDERED: Prazosin HCl2 MG PO (12:41)
[2019-08-03] MEDS ORDERED: TRAM50 PO (12:42)
[2019-08-03] MEDS ORDERED: Thiamine HCl100 MG PO (12:42)
[2019-08-03] MEDS ORDERED: SPIR25 PO (12:42)
[2019-08-03] MEDS ORDERED: Fish Oil 10001000 MG PO (14:33)
[2019-08-03] MEDS ORDERED: PROBIOTIC1 EAC4 PO (14:34)
[2019-08-03] MEDS ORDERED: SAM E PO (14:34)
[2019-08-04] MEDS ORDERED: Lopressor 25 mg25 MG PO (13:46)
== END 2019-04-14 15:56 | DRG 871 ==
LOC: ER 20:27 → MEDS 22:35 → ENPENDDIS 04-14 12:40 → MEDS 04-14 15:56
PROVIDERS: Emergency Medicine; Internal Medicine; ADMIT Internal Medicine
DX: A41.9 Sepsis, unspecified organism (principal); I50.33 Acute on chronic diastolic (congestive) heart failure; I48.92 Unspecified atrial flutter; R65.20 Severe sepsis without septic shock; N50.89 Other specified disorders of the male genital organs; E88.09 Other disorders of plasma-protein metabolism, not elsewhere classified; K74.69 Other cirrhosis of liver; I11.0 Hypertensive heart disease with heart failure; Z74.09 Other reduced mobility; J44.9 Chronic obstructive pulmonary disease, unspecified; F43.10 Post-traumatic stress disorder, unspecified; G89.29 Other chronic pain; M54.9 Dorsalgia, unspecified; F32.9 Major depressive disorder, single episode, unspecified; G62.9 Polyneuropathy, unspecified; E87.6 Hypokalemia; F17.210 Nicotine dependence, cigarettes, uncomplicated; Z79.01 Long term (current) use of anticoagulants; Z79.82 Long term (current) use of aspirin; Z79.899 Other long term (current) drug therapy
CPT/HCPCS: 36415; 71045; 76870; 80048; 80053; 83605; 83880; 84145; 84484; 85025; 85027; 85610; 87040; 87486; 87581; 87633; 87798; 93005; 93010; 94762; 96365; 96367; 97110; 97116; 97162; 97165; 97530; 97535; 99285-25; J0456; J0696; J1650; J1940; J7050; P9046

== ENCOUNTER 2019-04-27 06:22 | Day surgery (SDC) | payer OTHER, MEDICARE ==
[~2019-04-27] VITALS: Ht 177.8 cm; Wt 95.0 kg
[~2019-04-27 06:22] MED LIST changes: +A AND D OINTM42.5 GM TOP; +B-1100 MG PO; +B-121000 MC2 PO; +Dentagel56 GM DT; +ELIQUIS2.5 MG; +Naproxen250 MG PO; +TORSE20 PO
[2019-04-27] MEDS ORDERED: ASPI81CH PO (07:00)
[2019-04-27] MEDS ORDERED: ELIQUIS5 M2 PO (07:04)
[2019-04-27] MEDS ORDERED: METO25ER PO (07:05)
[2019-07-07] MEDS ORDERED: Bumetanide2 MG PO (21:23)
[2019-08-03] MEDS ORDERED: BACL10 PO (12:38)
[2019-08-03] MEDS ORDERED: ELIQUIS5 MG PO (12:38)
[2019-08-03] MEDS ORDERED: Bumetanide2 MG PO (12:39)
[2019-08-03] MEDS ORDERED: Vitamin B-122000 MCG PO (12:39)
[2019-08-03] MEDS ORDERED: FERSU300 PO (12:39)
[2019-08-03] MEDS ORDERED: GABA300 PO (12:40)
[2019-08-03] MEDS ORDERED: METO25ER PO (12:40)
[2019-08-03] MEDS ORDERED: MELA3 PO (12:40)
[2019-08-03] MEDS ORDERED: POTCHL20ER PO (12:40)
[2019-08-03] MEDS ORDERED: FOLI1 PO (12:40)
[2019-08-03] MEDS ORDERED: SERT50 PO (12:41)
[2019-08-03] MEDS ORDERED: RISP2 PO (12:41)
[2019-08-03] MEDS ORDERED: Prazosin HCl2 MG PO (12:41)
[2019-08-03] MEDS ORDERED: SPIR25 PO (12:42)
[2019-08-03] MEDS ORDERED: TRAM50 PO (12:42)
[2019-08-03] MEDS ORDERED: Thiamine HCl100 MG PO (12:42)
[2019-08-03] MEDS ORDERED: Fish Oil 10001000 MG PO (14:33)
[2019-08-03] MEDS ORDERED: SAM E PO (14:34)
[2019-08-03] MEDS ORDERED: PROBIOTIC1 EAC4 PO (14:34)
[2019-08-04] MEDS ORDERED: Lopressor 25 mg25 MG PO (13:46)
== END 2019-04-27 22:42 | disposition home or self-care (01) ==
LOC: MHTC 06:22
DX: I48.1 Persistent atrial fibrillation (principal); I08.1 Rheumatic disorders of both mitral and tricuspid valves; I70.0 Atherosclerosis of aorta; I11.0 Hypertensive heart disease with heart failure; I50.42 Chronic combined systolic (congestive) and diastolic (congestive) heart failure; F32.9 Major depressive disorder, single episode, unspecified; F43.10 Post-traumatic stress disorder, unspecified; G47.33 Obstructive sleep apnea (adult) (pediatric); Z79.899 Other long term (current) drug therapy; Z79.82 Long term (current) use of aspirin; Z79.01 Long term (current) use of anticoagulants; Z87.891 Personal history of nicotine dependence; Z99.89 Dependence on other enabling machines and devices
CPT/HCPCS: 92960; 93005; 93010; 93312; 93325; 99152; J2250; J3010; J7030

== ENCOUNTER 2019-05-18 08:14 | Day surgery (SDC) | payer OTHER, MEDICARE ==
[~2019-05-18] VITALS: Ht 182.9 cm; Wt 85.0 kg
[~2019-05-18 08:14] MED LIST changes: +ASPI81CH PO; +ELIQUIS5 M2 PO; +METO25ER PO
[2019-05-18] MEDS ORDERED: RISP2 PO (09:01)
[2019-05-18] MEDS ORDERED: Aldactone100 MG PO (09:01)
[2019-05-18] MEDS ORDERED: TORSE20 PO (09:01)
[2019-05-18] MEDS ORDERED: OCUVITE EYE HE1 EACH PO (09:02)
--- NOTE | 2019-05-18 09:25 | NUR ---
PT TOLERATES CARDIOVERSION WELL. VSS. NADN. PT RESTING COMFORTABLY. DR FITZPATRICK SPEAKING WITH SPOUSE, BRITTANI. PT WILL FOLLOW UP SCHEDULED WITH LISA SILVA.
[2019-07-07] MEDS ORDERED: Bumetanide2 MG PO (21:23)
[2019-08-03] MEDS ORDERED: BACL10 PO (12:38)
[2019-08-03] MEDS ORDERED: ELIQUIS5 MG PO (12:38)
[2019-08-03] MEDS ORDERED: Vitamin B-122000 MCG PO (12:39)
[2019-08-03] MEDS ORDERED: Bumetanide2 MG PO (12:39)
[2019-08-03] MEDS ORDERED: FERSU300 PO (12:39)
[2019-08-03] MEDS ORDERED: MELA3 PO (12:40)
[2019-08-03] MEDS ORDERED: METO25ER PO (12:40)
[2019-08-03] MEDS ORDERED: FOLI1 PO (12:40)
[2019-08-03] MEDS ORDERED: POTCHL20ER PO (12:40)
[2019-08-03] MEDS ORDERED: GABA300 PO (12:40)
[2019-08-03] MEDS ORDERED: RISP2 PO (12:41)
[2019-08-03] MEDS ORDERED: SERT50 PO (12:41)
[2019-08-03] MEDS ORDERED: Prazosin HCl2 MG PO (12:41)
[2019-08-03] MEDS ORDERED: Thiamine HCl100 MG PO (12:42)
[2019-08-03] MEDS ORDERED: SPIR25 PO (12:42)
[2019-08-03] MEDS ORDERED: TRAM50 PO (12:42)
[2019-08-03] MEDS ORDERED: Fish Oil 10001000 MG PO (14:33)
[2019-08-03] MEDS ORDERED: SAM E PO (14:34)
[2019-08-03] MEDS ORDERED: PROBIOTIC1 EAC4 PO (14:34)
[2019-08-04] MEDS ORDERED: Lopressor 25 mg25 MG PO (13:46)
== END 2019-05-18 23:13 | disposition home or self-care (01) ==
LOC: MHTC 08:14
DX: I48.92 Unspecified atrial flutter (principal); K74.60 Unspecified cirrhosis of liver; I11.0 Hypertensive heart disease with heart failure; I50.31 Acute diastolic (congestive) heart failure; F43.10 Post-traumatic stress disorder, unspecified; F32.9 Major depressive disorder, single episode, unspecified; G47.33 Obstructive sleep apnea (adult) (pediatric); Z79.82 Long term (current) use of aspirin; Z79.899 Other long term (current) drug therapy; Z87.891 Personal history of nicotine dependence; Z99.89 Dependence on other enabling machines and devices
CPT/HCPCS: 92960; 93005; 93010; 99152; J2250; J3010; J7040

== ENCOUNTER 2019-06-09 06:46 | Day surgery (SDC) | payer OTHER, MEDICARE ==
[~2019-06-09] VITALS: Ht 177.8 cm; Wt 80.0 kg
[~2019-06-09 06:46] MED LIST changes: +OCUVITE EYE HE1 EACH PO
[2019-06-09 07:35] LABS: BASOPHILS ABSOLUTE AUTO 0.05 K/mm3 (0.00-0.23); BASOPHILS PERCENT AUTO 0 % (0-2); EOSINOPHILS ABSOLUTE AUTO 0.46 K/mm3 (0.00-0.68); EOSINOPHILS PERCENT AUTO 4 % (0-6); Hematocrit 33.6 % (37.0-53.0); Hemoglobin 10.5 g/dL (13.5-17.5); IMMATURE GRAN ABSOLUTE AUTO 0.23 K/mm3 (0.00-0.10); IMMATURE GRAN PERCENT AUTO 2 % (0-1); LYMPHOCYTES ABSOLUTE AUTO 0.98 K/mm3 (0.84-5.20); LYMPHOCYTES PERCENT AUTO 9 % (21-46); MONOCYTES ABSOLUTE AUTO 1.18 K/mm3 (0.16-1.47); MONOCYTES PERCENT AUTO 11 % (4-13); Mean Corpuscular HGB 28.5 pg (26.0-34.0); Mean Corpuscular HGB Conc 31.3 g/dL (31.5-36.5); Mean Corpuscular Volume 91 fL (80-100); NEUTROPHILS ABSOLUTE AUTO 8.29 K/mm3 (1.96-9.15); NEUTROPHILS PERCENT AUTO 74 % (41-73); Platelet Count 260 K/mm3 (150-400); RDW Coefficient Variation 16.5 % (11.7-14.2); RDW Standard Deviation 55.1 fL (35.1-46.3); Red Blood Cell Count 3.68 M/mm3 (4.30-5.90); White Blood Cell Count 11.19 K/mm3 (4.00-11.30)
[2019-06-09 07:56] LABS: Calcium, Blood 8.7 mg/dL (8.5-10.1); Creatinine, Blood 1.58 mg/dL (0.60-1.20); Potassium, Blood 4.8 mmol/L (3.5-5.5); Thyroxine (T4) 9.8 ug/dL (4.5-12.1)
[2019-06-09 07:59] LABS: Thyroid Stimulating Hormone 3.77 uIU/mL (0.360-4.800)
[2019-07-07] MEDS ORDERED: Bumetanide2 MG PO (21:23)
[2019-08-03] MEDS ORDERED: ELIQUIS5 MG PO (12:38)
[2019-08-03] MEDS ORDERED: BACL10 PO (12:38)
[2019-08-03] MEDS ORDERED: Bumetanide2 MG PO (12:39)
[2019-08-03] MEDS ORDERED: FERSU300 PO (12:39)
[2019-08-03] MEDS ORDERED: Vitamin B-122000 MCG PO (12:39)
[2019-08-03] MEDS ORDERED: FOLI1 PO (12:40)
[2019-08-03] MEDS ORDERED: GABA300 PO (12:40)
[2019-08-03] MEDS ORDERED: POTCHL20ER PO (12:40)
[2019-08-03] MEDS ORDERED: METO25ER PO (12:40)
[2019-08-03] MEDS ORDERED: MELA3 PO (12:40)
[2019-08-03] MEDS ORDERED: RISP2 PO (12:41)
[2019-08-03] MEDS ORDERED: SERT50 PO (12:41)
[2019-08-03] MEDS ORDERED: Prazosin HCl2 MG PO (12:41)
[2019-08-03] MEDS ORDERED: SPIR25 PO (12:42)
[2019-08-03] MEDS ORDERED: TRAM50 PO (12:42)
[2019-08-03] MEDS ORDERED: Thiamine HCl100 MG PO (12:42)
[2019-08-03] MEDS ORDERED: Fish Oil 10001000 MG PO (14:33)
[2019-08-03] MEDS ORDERED: SAM E PO (14:34)
[2019-08-03] MEDS ORDERED: PROBIOTIC1 EAC4 PO (14:34)
[2019-08-04] MEDS ORDERED: Lopressor 25 mg25 MG PO (13:46)
== END 2019-06-09 23:07 | disposition home or self-care (01) ==
LOC: MHTC 06:46
PROVIDERS: Internal Medicine Cardiovascular Disease
DX: I48.4 Atypical atrial flutter (principal); I44.30 Unspecified atrioventricular block; I13.0 Hypertensive heart and chronic kidney disease with heart failure and stage 1 through stage 4 chronic kidney disease, or unspecified chronic kidney disease; I50.31 Acute diastolic (congestive) heart failure; N18.9 Chronic kidney disease, unspecified; D63.1 Anemia in chronic kidney disease; F43.10 Post-traumatic stress disorder, unspecified; I27.20 Pulmonary hypertension, unspecified; Z87.891 Personal history of nicotine dependence; Z79.899 Other long term (current) drug therapy
CPT/HCPCS: 80048; 84436; 84443; 85025; 92960; 93005; 93010; 99152; J2250; J3010; J7030

== ENCOUNTER 2019-06-12 18:43 | Inpatient (IN) | payer OTHER, MEDICARE ==
[~2019-06-12] VITALS: Ht 182.9 cm; Wt 87.2 kg
[2019-06-12 20:11] LABS: BASOPHILS ABSOLUTE AUTO 0.08 K/mm3 (0.00-0.23); BASOPHILS PERCENT AUTO 0 % (0-2); EOSINOPHILS ABSOLUTE AUTO 0.25 K/mm3 (0.00-0.68); EOSINOPHILS PERCENT AUTO 1 % (0-6); Hematocrit 38.8 % (37.0-53.0); IMMATURE GRAN ABSOLUTE AUTO 0.68 K/mm3 (0.00-0.10); IMMATURE GRAN PERCENT AUTO 4 % (0-1); LYMPHOCYTES ABSOLUTE AUTO 1.39 K/mm3 (0.84-5.20); LYMPHOCYTES PERCENT AUTO 7 % (21-46); MONOCYTES ABSOLUTE AUTO 1.72 K/mm3 (0.16-1.47); MONOCYTES PERCENT AUTO 9 % (4-13); Mean Corpuscular HGB 28.2 pg (26.0-34.0); Mean Corpuscular HGB Conc 30.9 g/dL (31.5-36.5); Mean Corpuscular Volume 91 fL (80-100); Mean Platelet Volume 9.5 fL (9.1-12.4); NEUTROPHILS ABSOLUTE AUTO 14.92 K/mm3 (1.96-9.15); NEUTROPHILS PERCENT AUTO 78 % (41-73); Platelet Count 364 K/mm3 (150-400); RDW Coefficient Variation 16.7 % (11.7-14.2); RDW Standard Deviation 55.5 fL (35.1-46.3); Red Blood Cell Count 4.25 M/mm3 (4.30-5.90); White Blood Cell Count 19.04 K/mm3 (4.00-11.30)
[2019-06-12 20:33] LABS: Troponin I <0.015 ng/mL (0.000-0.040)
[2019-06-12 20:38] LABS: Alanine Aminotransfer (ALT/SGP 33 U/L (12-78); Albumin, Blood 2.6 g/dL (3.4-5.0); Albumin/Globulin Ratio 0.8 (0.8-1.8); Alk Phos 143 U/L (50-136); Anion Gap 9 mmol/L (6-16); Aspartate Aminotrans (AST/SGOT 31 U/L (12-37); Bilirubin, Total 0.6 mg/dL (0.1-1.0); Blood Urea Nitrogen 76 mg/dL (8-24); Bun/Creatinine Ratio 46.1 (12.0-20.0); CO2, Blood 21 mmol/L (21-32); Calcium, Blood 7.9 mg/dL (8.5-10.1); Chloride, Blood 105 mmol/L (98-108); Creatinine, Blood 1.65 mg/dL (0.60-1.20); Globulin, Blood 3.3 g/dL (2.2-4.0); Glomerular Filtration Rate 44 (60-); Glucose, Blood 133 mg/dL (70-99); Potassium, Blood 6.6 mmol/L (3.5-5.5); Sodium, Blood 135 mmol/L (136-145); Total Protein, Blood 5.9 g/dL (6.4-8.2)
[2019-06-12 21:05] LABS: Calcium, Ionized (POC) 1.06 mmol/L (1.10-1.46); Chloride (POC) 105 mmol/L (98-108); Glucose (ISTAT POC) 116 mg/dL (70-99); Hemoglobin (POC) 12.2 g/dL (13.5-17.5); Potassium (POC) 6.8 mmol/L (3.5-5.5); Sodium (POC) 130 mmol/L (135-148); Total CO2 (POC) 18 mmol/L (21-32)
[2019-06-12 22:45] LABS: Source, Urine Clean Catch
[2019-06-12 22:47] LABS: Bilirubin, Urine Neg (Neg); Blood, Urine 3+ (Neg); Glucose Qualitative, Urine Neg (Neg); Ketones, Urine Neg (Neg); Leukocyte Esterase, Urine Neg (Neg); Nitrite, Urine Neg (Neg); Protein, Urine Neg (Neg); Specific Gravity, Urine 1.015 (1.003-1.022); Urobilinogen, Urine NORM (Normal)
[2019-06-12 22:57] LABS: Appearance, Urine Clear (Clear); Color, Urine Yellow (P-Yellow)
[2019-06-12 22:58] LABS: Bacteria Not Seen /hpf; Squamous Epithelial Cells Rare /hpf (Few); White Blood Cells, Urine Rare /hpf (0-5)
[2019-06-12 22:59] LABS: Hyaline Casts 0-2 /lpf (0-2)
[2019-06-13 00:19] LABS: Bun/Creatinine Ratio 43.3 (12.0-20.0); Creatinine, Blood 1.78 mg/dL (0.60-1.20)
[2019-06-13] MEDS ORDERED: MELA3 PO (00:21)
[2019-06-13] MEDS ORDERED: PRAZ1 PO (00:22)
[2019-06-13] MEDS ORDERED: Milk Thistle175 M1 PO (00:23)
[2019-06-13] MEDS ORDERED: TUMS500 MG PO (00:23)
[2019-06-13] MEDS ORDERED: TUMERIC PO (00:25)
[2019-06-13] MEDS ORDERED: DILT30 PO (00:26)
[2019-06-13] MEDS ORDERED: B-1100 MG PO (00:26)
--- NOTE | 2019-06-13 00:49 | NUR ---
PCU ADMIT CHANGED TO ICU STATUS NOTIFIED BY JHOANA FLIGHT OPERATIONS SPECIALIST OF ADMISSION COMING TO PCU. CALLED PRIMARY MANAGING JEWELER FOR REPORT. NOTIFIED BY JUAN ALBERTO NURSING PRINTS AND DRAWINGS CURATOR THAT PATIENT HAS BEEN CHANGED TO ICU STATUS AND WILL NOT BE COMING TO PCU.
--- NOTE | 2019-06-13 02:34 | NUR ---
ADMIT PT ARRIVES VIA STRETECHER FROM ER. PER REPORT, PT HAD INCREASED WORK OF BREATHING OVER LAST FEW DAYS. ARRIVES SPEAKING FULL SENTENCES, REPORTING HE FEELS MUCH BETTER THAN WHEN HE ARRIVED BUT STILL FEELS SOB WITH EXERTION. SEPSIS PROTOCOL FLUID BOLUS NEARING COMPLETION AND BICARB DRIP AT 100ML/HR. CALL TO DR ZAMBRANO TO UPDATE ON LAST K+ DRAW AT 2100 WITH REPEAT D50, INSULIN AND BICARB PUSH PENDING IN ER. PLAN TO RECHECK SERUM K+ WHEN PT ARRIVES. BP STABLE, ECG SHOWS SR, O2 SATS 99%. PLAN TO INITIATE ADMIT ORDERS AND CALL RT FOR BIPAP PT WEARS IT AT HOME AND HIS IS PLANNING ON BRINGING PT'S IN AM.
[2019-06-13 03:13] LABS: BASOPHILS ABSOLUTE AUTO 0.05 K/mm3 (0.00-0.23); BASOPHILS PERCENT AUTO 0 % (0-2); EOSINOPHILS ABSOLUTE AUTO 0.09 K/mm3 (0.00-0.68); EOSINOPHILS PERCENT AUTO 1 % (0-6); Hematocrit 34.4 % (37.0-53.0); Hemoglobin 10.7 g/dL (13.5-17.5); IMMATURE GRAN ABSOLUTE AUTO 0.52 K/mm3 (0.00-0.10); IMMATURE GRAN PERCENT AUTO 3 % (0-1); LYMPHOCYTES ABSOLUTE AUTO 0.76 K/mm3 (0.84-5.20); LYMPHOCYTES PERCENT AUTO 4 % (21-46); MONOCYTES ABSOLUTE AUTO 1.86 K/mm3 (0.16-1.47); MONOCYTES PERCENT AUTO 10 % (4-13); Mean Corpuscular HGB 27.6 pg (26.0-34.0); Mean Corpuscular HGB Conc 31.1 g/dL (31.5-36.5); Mean Corpuscular Volume 89 fL (80-100); Mean Platelet Volume 9.4 fL (9.1-12.4); NEUTROPHILS ABSOLUTE AUTO 16.05 K/mm3 (1.96-9.15); NEUTROPHILS PERCENT AUTO 83 % (41-73); Platelet Count 273 K/mm3 (150-400); RDW Coefficient Variation 16.7 % (11.7-14.2); RDW Standard Deviation 53.9 fL (35.1-46.3); Red Blood Cell Count 3.88 M/mm3 (4.30-5.90); White Blood Cell Count 19.33 K/mm3 (4.00-11.30)
[2019-06-13 03:32] LABS: Magnesium, Blood 2.2 mg/dL (1.6-2.4)
[2019-06-13] MEDS ORDERED: Amiodarone HCl200 MG PO (03:53)
[2019-06-13] MEDS ORDERED: VIT1CAPS12 PO (03:54)
[2019-06-13 04:10] LABS: Albumin, Blood 2.2 g/dL (3.4-5.0); Anion Gap 10 mmol/L (6-16); Blood Urea Nitrogen 71 mg/dL (8-24); CO2, Blood 20 mmol/L (21-32); Calcium, Blood 7.5 mg/dL (8.5-10.1); Chloride, Blood 107 mmol/L (98-108); Creatinine, Blood 1.51 mg/dL (0.60-1.20); Glomerular Filtration Rate 49 (60-); Glucose, Blood 131 mg/dL (70-99); Sodium, Blood 137 mmol/L (136-145)
[2019-06-13 04:12] LABS: Potassium, Blood 4.8 mmol/L (3.5-5.5)
--- NOTE | 2019-06-13 05:05 | NUR ---
UPDATE TO DR ZAMBRANO UPDATED DR ON AM LABS, ORDER TO REDUCED BICARB FROM 100ML/HR TO 75ML/HR.
--- NOTE | 2019-06-13 06:13 | NUR ---
SHIFT SUMMARY NO ACUTE EVENTS SINCE ADMIT. PT REMAINS A&O AND DENIES COMPLAINTS AT THIS TIME. VSS, ECG SHOWS SR/SB AND O2 SATS >95%. RT SET UP BIPAP FOR PT AT 12/6 ON RA AND PT WAS ABLE TO SLEEP FOR A FEW HOURS. BICARB GTT AT 75ML/HR, UOP >1300ML SINCE ARRIVAL.
--- NOTE | 2019-06-13 07:30 | NUR ---
ASSUMED CARE OF PATIENT; SEE ASSESSMENT CHARTING FOR DETAILS. PATIENT A/O X4; DENIES ACUTE DISCOMFORT. TENDERNESS TO MID ABD. REGION WITH PALPATION; DENIES N/V OR OTHER GI ISSUES. VALIENTE TO GRAVITY AND DRAINING MOD. AMOUNTS OF MED. YELLOW URINE. IVF OF BICARB DRIP INFUSING AT 75ML/HR. K+ LEVEL, THIS AM, DOWN TO 4.8. PATIENT SLEEPING WHEN NOT DISTURBED. BIOX. 99% ON ROOM AIR. EARS CPAP MACHINE DURING SLEEP; CPAP AT HOME ON ROOM AIR ALSO.
--- NOTE | 2019-06-13 08:25 | NUR ---
DR. DENSON HERE; SEE ORDERS.
--- NOTE | 2019-06-13 09:58 | NUR ---
CHANGED TO MEDICAL FLORR STATUS, WITH TELEMETRY.
--- NOTE | 2019-06-13 10:00 | NUR ---
DR. ZAMBRANO HERE; WANTS PATIENT TO RECEIVE BUMEX 2MG PO DAILY; START TODAY. ALSO TO REDUCE RATE OF NAHCO3 DRIP FROM 75/HR TO 50ML/HR.
--- NOTE | 2019-06-13 11:03 | NUR ---
PATIENT TO TRANSFER TO ROOM 332; WILL REPORT TO RECEIVING RN WHEN AVAILABLE.
--- NOTE | 2019-06-13 12:00 | NUR ---
REPORT TO MAY REAL RN.
--- NOTE | 2019-06-13 12:10 | NUR ---
VALIENTE CATHETER DC'D; 178ML OF MED. YELLOW URINE EMPTIED.
--- NOTE | 2019-06-13 12:15 | NUR ---
TRANSFERRED TO MEDICAL FLOOR, ROOM 332, VIA W/C; TOLERATED WELL. RN AND PATIENTS' SPOUSE ACCOMPANIED PATIENT; CHART AND BELONGINGS, ALSO.
--- NOTE | 2019-06-13 12:43 | NUR ---
PT ARRIVED TO THE MEDICAL FLOOR FROM THE ICU A/OX3, PLEASANT AND COOPERATIVE, THE PT WAS UP FROM THE WHEELCHAIR WITH STANBY ASSIST TO THE BED, THE PT WAS ORIENTED TO THE ROOM LAYOUT AND CALL SYSTEM, CALL LIGHT IN REACH, PTS IS AT THE BEDSIDE, THE PT APPEARS TO BE BREATHING EASILY ON RA
--- NOTE | 2019-06-13 16:45 | NUR ---
PT IS A/OX3, PLEASANT AND COOPERATIVE, THE PT IS UP WITH MINIMAL ASSIST, THE PT APPEARS TO BE BREATHING EASILY ON RA AT THIS TIME, THE PT HAS DENIED PAIN SO FAR THIS SHIFT, THE PT WORKED WITH THE PHYSICAL THERAPIST TODAY AND AMBULATED OUT INTO THE HALLWAY, IS AT THE BEDSIDE, CALL LIGHT IN REACH
[2019-06-14 04:53] LABS: Hematocrit 29.8 % (37.0-53.0); Hemoglobin 9.4 g/dL (13.5-17.5); Mean Corpuscular HGB 27.4 pg (26.0-34.0); Mean Corpuscular HGB Conc 31.5 g/dL (31.5-36.5); Mean Corpuscular Volume 87 fL (80-100); Mean Platelet Volume 9.4 fL (9.1-12.4); Platelet Count 228 K/mm3 (150-400); RDW Standard Deviation 53.5 fL (35.1-46.3); Red Blood Cell Count 3.43 M/mm3 (4.30-5.90); White Blood Cell Count 11.76 K/mm3 (4.00-11.30)
[2019-06-14 05:35] LABS: Albumin, Blood 2.1 g/dL (3.4-5.0); Anion Gap 8 mmol/L (6-16); Blood Urea Nitrogen 60 mg/dL (8-24); Bun/Creatinine Ratio 42.3 (12.0-20.0); CO2, Blood 25 mmol/L (21-32); Calcium, Blood 7.6 mg/dL (8.5-10.1); Chloride, Blood 103 mmol/L (98-108); Creatinine, Blood 1.42 mg/dL (0.60-1.20); Glomerular Filtration Rate 52 (60-); Glucose, Blood 135 mg/dL (70-99); Magnesium, Blood 2.3 mg/dL (1.6-2.4); Phosphorus, Blood 3.3 mg/dL (2.5-4.9); Potassium, Blood 4.2 mmol/L (3.5-5.5); Sodium, Blood 136 mmol/L (136-145)
--- NOTE | 2019-06-14 07:17 | NUR ---
SHIFT SUMMARY PT IS A 69 Y/O MALE, ADMITTED FOR HYPERKALEMIA. HE IS A&O X 4, AND A SBA IN THE ROOM. PT'S CONTINUOUS SODIUM BICARB WAS DC'D BY DR ZAMBRANO DURING THE NIGHT. HE DENIED ANY COMPLAINTS OF PAIN, NAUSEA OR SOB, AND SLEPT WELL DURING THE NIGHT. VITAL SIGNS STABLE. NO ACUTE CHANGES IN PT CONDITION NOTED. REPORT GIVEN TO ONCOMING NURSE.
[2019-06-14] MEDS ORDERED: MIRALAX17 GM PO (11:54)
--- NOTE | 2019-06-14 15:18 | NUR ---
PT DISCHARGED THE PT VERBALIZED UNDERSTANDING OF THE DC INSTRUCTIONS, THE PT WAS REMINED TO ATTEND HIS FOLLOW UP APPOINTMENTS, THE PT APPEARED TO BE BREATHING EASILY ON RA AT THE TIME OF DC, THE PT WAS TRANSFERED VIA WHEELCHAIR, ACCOMPANIED BY THE DESK REPRESENTATIVE AND HIS
[2019-07-07] MEDS ORDERED: Bumetanide2 MG PO (21:23)
[2019-08-03] MEDS ORDERED: ELIQUIS5 MG PO (12:38)
[2019-08-03] MEDS ORDERED: BACL10 PO (12:38)
[2019-08-03] MEDS ORDERED: FERSU300 PO (12:39)
[2019-08-03] MEDS ORDERED: Vitamin B-122000 MCG PO (12:39)
[2019-08-03] MEDS ORDERED: Bumetanide2 MG PO (12:39)
[2019-08-03] MEDS ORDERED: FOLI1 PO (12:40)
[2019-08-03] MEDS ORDERED: GABA300 PO (12:40)
[2019-08-03] MEDS ORDERED: METO25ER PO (12:40)
[2019-08-03] MEDS ORDERED: MELA3 PO (12:40)
[2019-08-03] MEDS ORDERED: POTCHL20ER PO (12:40)
[2019-08-03] MEDS ORDERED: SERT50 PO (12:41)
[2019-08-03] MEDS ORDERED: Prazosin HCl2 MG PO (12:41)
[2019-08-03] MEDS ORDERED: RISP2 PO (12:41)
[2019-08-03] MEDS ORDERED: TRAM50 PO (12:42)
[2019-08-03] MEDS ORDERED: Thiamine HCl100 MG PO (12:42)
[2019-08-03] MEDS ORDERED: SPIR25 PO (12:42)
[2019-08-03] MEDS ORDERED: Fish Oil 10001000 MG PO (14:33)
[2019-08-03] MEDS ORDERED: PROBIOTIC1 EAC4 PO (14:34)
[2019-08-03] MEDS ORDERED: SAM E PO (14:34)
[2019-08-04] MEDS ORDERED: Lopressor 25 mg25 MG PO (13:46)
== END 2019-06-14 13:27 | disposition home or self-care (01) | DRG 641 ==
LOC: ER 18:43 → ICUW 23:50 → ICUE 06-13 02:30 → ER 06-13 02:30 → ICUE 06-13 02:33 → ICUW 06-13 02:33 → ICUE 06-13 09:58 → MEDS 06-13 12:15 → ICUE 06-13 12:15 → MEDS 06-14 00:45 → ENPENDDIS 06-14 11:14 → MEDS 06-14 13:27
PROVIDERS: Internal Medicine; Internal Medicine Nephrology; Physician Assistant; ADMIT Family Medicine
DX: E87.5 Hyperkalemia (principal); N17.9 Acute kidney failure, unspecified; I97.190 Other postprocedural cardiac functional disturbances following cardiac surgery; I13.0 Hypertensive heart and chronic kidney disease with heart failure and stage 1 through stage 4 chronic kidney disease, or unspecified chronic kidney disease; I50.32 Chronic diastolic (congestive) heart failure; E87.2 Acidosis; K59.00 Constipation, unspecified; N18.3 Chronic kidney disease, stage 3 (moderate); E86.1 Hypovolemia; I48.0 Paroxysmal atrial fibrillation; D63.1 Anemia in chronic kidney disease; G47.33 Obstructive sleep apnea (adult) (pediatric); J44.9 Chronic obstructive pulmonary disease, unspecified; F32.9 Major depressive disorder, single episode, unspecified; K74.60 Unspecified cirrhosis of liver; Z79.01 Long term (current) use of anticoagulants; R00.1 Bradycardia, unspecified; Z87.891 Personal history of nicotine dependence; E86.0 Dehydration; I95.9 Hypotension, unspecified; M79.2 Neuralgia and neuritis, unspecified; E88.09 Other disorders of plasma-protein metabolism, not elsewhere classified
CPT/HCPCS: 36415; 51702; 71046; 74176; 80047; 80048; 80053; 80069; 81001; 82550; 82947; 83605; 83735; 83880; 84145; 84484; 85014; 85025; 85027; 87040; 93005; 93010; 94644; 96361; 96365-59; 96375; 96375-59; 96376; 97110; 97116; 97161; 97165; 97530; 97535; 99285-25; J1815; J7030; J7070; J7799

== ENCOUNTER 2019-06-23 11:37 | Emergency (ER) | payer MEDICARE ==
[~2019-06-23] VITALS: Ht 182.9 cm; Wt 91.2 kg
[~2019-06-23 11:37] MED LIST changes: +Amiodarone HCl200 MG PO; +DILT30 PO; +Milk Thistle175 M1 PO; +PRAZ1 PO; +TUMERIC PO; +TUMS500 MG PO; +VIT1CAPS12 PO
[2019-06-23 12:45] LABS: BASOPHILS ABSOLUTE AUTO 0.04 K/mm3 (0.00-0.23); BASOPHILS PERCENT AUTO 0 % (0-2); EOSINOPHILS ABSOLUTE AUTO 0.19 K/mm3 (0.00-0.68); EOSINOPHILS PERCENT AUTO 2 % (0-6); Hematocrit 32.6 % (37.0-53.0); IMMATURE GRAN ABSOLUTE AUTO 0.12 K/mm3 (0.00-0.10); IMMATURE GRAN PERCENT AUTO 1 % (0-1); LYMPHOCYTES ABSOLUTE AUTO 0.79 K/mm3 (0.84-5.20); LYMPHOCYTES PERCENT AUTO 7 % (21-46); MONOCYTES ABSOLUTE AUTO 1.42 K/mm3 (0.16-1.47); MONOCYTES PERCENT AUTO 12 % (4-13); Mean Corpuscular HGB 27.5 pg (26.0-34.0); Mean Corpuscular HGB Conc 30.7 g/dL (31.5-36.5); NEUTROPHILS ABSOLUTE AUTO 9.39 K/mm3 (1.96-9.15); NEUTROPHILS PERCENT AUTO 79 % (41-73); Platelet Count 252 K/mm3 (150-400); RDW Coefficient Variation 16.8 % (11.7-14.2); RDW Standard Deviation 55.6 fL (35.1-46.3); Red Blood Cell Count 3.63 M/mm3 (4.30-5.90); White Blood Cell Count 11.95 K/mm3 (4.00-11.30)
[2019-06-23 12:47] LABS: Mean Corpuscular Volume 90 fL (80-100)
[2019-06-23 13:03] LABS: Alanine Aminotransfer (ALT/SGP 41 U/L (12-78); Albumin/Globulin Ratio 0.5 (0.8-1.8); Alk Phos 217 U/L (50-136); Anion Gap 8 mmol/L (6-16); Aspartate Aminotrans (AST/SGOT 33 U/L (12-37); Bilirubin, Total 0.7 mg/dL (0.1-1.0); Blood Urea Nitrogen 48 mg/dL (8-24); Bun/Creatinine Ratio 41.4 (12.0-20.0); CO2, Blood 29 mmol/L (21-32); Calcium, Blood 8.5 mg/dL (8.5-10.1); Chloride, Blood 101 mmol/L (98-108); Creatinine, Blood 1.16 mg/dL (0.60-1.20); Globulin, Blood 3.7 g/dL (2.2-4.0); Glomerular Filtration Rate >60 (60-); Glucose, Blood 110 mg/dL (70-99); Potassium, Blood 3.8 mmol/L (3.5-5.5); Sodium, Blood 138 mmol/L (136-145); Total Protein, Blood 5.7 g/dL (6.4-8.2); Troponin I <0.015 ng/mL (0.000-0.040)
[2019-06-23] MEDS ORDERED: AZIT250 PO (13:55)
[2019-07-07] MEDS ORDERED: Bumetanide2 MG PO (21:23)
[2019-08-03] MEDS ORDERED: ELIQUIS5 MG PO (12:38)
[2019-08-03] MEDS ORDERED: BACL10 PO (12:38)
[2019-08-03] MEDS ORDERED: Bumetanide2 MG PO (12:39)
[2019-08-03] MEDS ORDERED: Vitamin B-122000 MCG PO (12:39)
[2019-08-03] MEDS ORDERED: FERSU300 PO (12:39)
[2019-08-03] MEDS ORDERED: FOLI1 PO (12:40)
[2019-08-03] MEDS ORDERED: MELA3 PO (12:40)
[2019-08-03] MEDS ORDERED: GABA300 PO (12:40)
[2019-08-03] MEDS ORDERED: POTCHL20ER PO (12:40)
[2019-08-03] MEDS ORDERED: METO25ER PO (12:40)
[2019-08-03] MEDS ORDERED: RISP2 PO (12:41)
[2019-08-03] MEDS ORDERED: Prazosin HCl2 MG PO (12:41)
[2019-08-03] MEDS ORDERED: SERT50 PO (12:41)
[2019-08-03] MEDS ORDERED: Thiamine HCl100 MG PO (12:42)
[2019-08-03] MEDS ORDERED: TRAM50 PO (12:42)
[2019-08-03] MEDS ORDERED: SPIR25 PO (12:42)
[2019-08-03] MEDS ORDERED: Fish Oil 10001000 MG PO (14:33)
[2019-08-03] MEDS ORDERED: PROBIOTIC1 EAC4 PO (14:34)
[2019-08-03] MEDS ORDERED: SAM E PO (14:34)
[2019-08-04] MEDS ORDERED: Lopressor 25 mg25 MG PO (13:46)
== END 2019-06-23 14:53 | disposition home or self-care (01) ==
LOC: ER 11:37
PROVIDERS: Emergency Medicine
DX: J18.1 Lobar pneumonia, unspecified organism (principal); J44.9 Chronic obstructive pulmonary disease, unspecified; I11.0 Hypertensive heart disease with heart failure; I50.9 Heart failure, unspecified; I48.91 Unspecified atrial fibrillation; F32.9 Major depressive disorder, single episode, unspecified; G47.30 Sleep apnea, unspecified; F17.210 Nicotine dependence, cigarettes, uncomplicated; Z79.899 Other long term (current) drug therapy; Z79.891 Long term (current) use of opiate analgesic; Z79.01 Long term (current) use of anticoagulants
CPT/HCPCS: 71046; 80053; 84484; 85025; 93005; 93010; 96365; 99284-25; J0696

== ENCOUNTER → 2019-07-02 | Outpatient (CLI) | payer MEDICARE ==
[~2019-07-02] MED LIST changes: +Bumetanide2 MG PO; +ELIQUIS5 MG PO; +FERSU300 PO; +Fish Oil 10001000 MG PO; +Lopressor 25 mg25 MG PO; +METO5 PO; +PROBIOTIC1 EAC4 PO; +Prazosin HCl2 MG PO; +SERT50 PO; +SPIR25 PO; +TURMERIC 500 M1 EACH PO; +Thiamine HCl100 MG PO; +Vitamin B-122000 MCG PO
[2019-07-02 12:29] LABS: Creatinine Urine 32.8 mg/dL (27.00-270.00); Protein, Urine Quantitative 9.2 mg/dL (0.0-11.9)
[2019-07-02 12:31] LABS: Microalbumin, Urine Quant. 14.6 mg/L (0.000-20.000)
== END | disposition home or self-care (01) ==
LOC: OLS 07:30 → LAB SHORT 07:30 → LAB FUT 06-30 09:00
PROVIDERS: Internal Medicine Nephrology
DX: E11.22 Type 2 diabetes mellitus with diabetic chronic kidney disease (principal); N18.3 Chronic kidney disease, stage 3 (moderate); D63.1 Anemia in chronic kidney disease; E11.21 Type 2 diabetes mellitus with diabetic nephropathy; N25.81 Secondary hyperparathyroidism of renal origin; E55.9 Vitamin D deficiency, unspecified; R76.9 Abnormal immunological finding in serum, unspecified; R94.5 Abnormal results of liver function studies; R94.6 Abnormal results of thyroid function studies; D51.8 Other vitamin B12 deficiency anemias; D52.8 Other folate deficiency anemias; D50.9 Iron deficiency anemia, unspecified
CPT/HCPCS: 81050; 82043; 82570; 84156

== ENCOUNTER 2019-07-07 19:36 | Observation (INO) | payer OTHER, MEDICARE ==
[~2019-07-07] VITALS: Ht 182.9 cm; Wt 81.4 kg
[~2019-07-07 19:36] MED LIST changes: -Bumetanide2 MG PO; -ELIQUIS5 MG PO; -FERSU300 PO; -Fish Oil 10001000 MG PO; -Lopressor 25 mg25 MG PO; -METO5 PO; -PROBIOTIC1 EAC4 PO; -Prazosin HCl2 MG PO; -SERT50 PO; -SPIR25 PO; -TURMERIC 500 M1 EACH PO; -Thiamine HCl100 MG PO; -Vitamin B-122000 MCG PO
[2019-07-07 20:21] LABS: BASOPHILS ABSOLUTE AUTO 0.12 K/mm3 (0.00-0.23); BASOPHILS PERCENT AUTO 1 % (0-2); EOSINOPHILS ABSOLUTE AUTO 0.34 K/mm3 (0.00-0.68); EOSINOPHILS PERCENT AUTO 3 % (0-6); Hematocrit 29.6 % (37.0-53.0); Hemoglobin 9.1 g/dL (13.5-17.5); IMMATURE GRAN ABSOLUTE AUTO 0.15 K/mm3 (0.00-0.10); IMMATURE GRAN PERCENT AUTO 1 % (0-1); LYMPHOCYTES ABSOLUTE AUTO 1.42 K/mm3 (0.84-5.20); LYMPHOCYTES PERCENT AUTO 10 % (21-46); MONOCYTES ABSOLUTE AUTO 1.36 K/mm3 (0.16-1.47); MONOCYTES PERCENT AUTO 10 % (4-13); Mean Corpuscular HGB 26.7 pg (26.0-34.0); Mean Corpuscular HGB Conc 30.7 g/dL (31.5-36.5); Mean Corpuscular Volume 87 fL (80-100); Mean Platelet Volume 9.1 fL (9.1-12.4); NEUTROPHILS ABSOLUTE AUTO 10.36 K/mm3 (1.96-9.15); NEUTROPHILS PERCENT AUTO 75 % (41-73); Platelet Count 297 K/mm3 (150-400); RDW Coefficient Variation 17.2 % (11.7-14.2); RDW Standard Deviation 54.6 fL (35.1-46.3); Red Blood Cell Count 3.41 M/mm3 (4.30-5.90); White Blood Cell Count 13.75 K/mm3 (4.00-11.30)
[2019-07-07 20:47] LABS: Alanine Aminotransfer (ALT/SGP 43 U/L (12-78); Albumin, Blood 2.6 g/dL (3.4-5.0); Albumin/Globulin Ratio 0.7 (0.8-1.8); Alk Phos 194 U/L (50-136); Anion Gap 8 mmol/L (6-16); Aspartate Aminotrans (AST/SGOT 41 U/L (12-37); Bilirubin, Total 0.9 mg/dL (0.1-1.0); Blood Urea Nitrogen 69 mg/dL (8-24); Bun/Creatinine Ratio 53.9 (12.0-20.0); CO2, Blood 35 mmol/L (21-32); Chloride, Blood 95 mmol/L (98-108); Creatinine, Blood 1.28 mg/dL (0.60-1.20); Globulin, Blood 3.6 g/dL (2.2-4.0); Glomerular Filtration Rate 59 (60-); Glucose, Blood 106 mg/dL (70-99); Potassium, Blood 2.8 mmol/L (3.5-5.5); Sodium, Blood 138 mmol/L (136-145); Total Protein, Blood 6.2 g/dL (6.4-8.2); Troponin I <0.015 ng/mL (0.000-0.040)
[2019-07-07] MEDS ORDERED: TURMERIC 500 M1 EACH PO (21:21)
[2019-07-07] MEDS ORDERED: Bumetanide2 MG PO ×2 (21:23)
[2019-07-07] MEDS ORDERED: METO5 PO (21:23)
[2019-07-07] MEDS ORDERED: TRAM50 PO (21:25)
[2019-07-07] MEDS ORDERED: METO25ER PO (21:28)
--- NOTE | 2019-07-08 02:00 | NUR ---
PT ADMITTED FROM ED FOR CHEST PAIN. DENYING AT THIS TIME. A&O X4. VS WNL. O2 SATS STABLE ON RA. FLUIDS INFUSING AT 250ML/HR. WILL CALL HOSPITALIST TO CLARIFY ORDER. PT NOTED TO HAVE 3+ BLE EDEMA. LUNGS CLEAR TO AUSCULATION. PT REPORTS THAT HE HAS AN EVALUATION LATER THIS AFTERNOON IN [place] FOR POSSIBLE CARDIAC ABLATION. PT IS HOPING TO MAKE IT TO HIS APPT.
[2019-07-08 04:30] LABS: Hematocrit 28.5 % (37.0-53.0); Hemoglobin 8.8 g/dL (13.5-17.5); Mean Corpuscular HGB 26.4 pg (26.0-34.0); Mean Corpuscular HGB Conc 30.9 g/dL (31.5-36.5); Mean Corpuscular Volume 86 fL (80-100); Mean Platelet Volume 9.2 fL (9.1-12.4); Platelet Count 268 K/mm3 (150-400); RDW Coefficient Variation 17.4 % (11.7-14.2); RDW Standard Deviation 53.2 fL (35.1-46.3); Red Blood Cell Count 3.33 M/mm3 (4.30-5.90); White Blood Cell Count 10.23 K/mm3 (4.00-11.30)
[2019-07-08 04:51] LABS: Albumin, Blood 2.3 g/dL (3.4-5.0); Albumin/Globulin Ratio 0.7 (0.8-1.8); Bilirubin, Total 0.8 mg/dL (0.1-1.0); Bun/Creatinine Ratio 51.5 (12.0-20.0); Calcium, Blood 8.5 mg/dL (8.5-10.1); Creatinine, Blood 1.34 mg/dL (0.60-1.20); Globulin, Blood 3.4 g/dL (2.2-4.0); Total Protein, Blood 5.7 g/dL (6.4-8.2)
[2019-07-08 04:54] LABS: CPK Creatine Kinase 51 U/L (39-308); Troponin I <0.015 ng/mL (0.000-0.040)
--- NOTE | 2019-07-08 06:24 | NUR ---
NO ACUTE EPISODES OVERNIGHT. PT OK TO DISCHARGE PER DR. ADHIKARI.
[2019-08-03] MEDS ORDERED: ELIQUIS5 MG PO (12:38)
[2019-08-03] MEDS ORDERED: BACL10 PO (12:38)
[2019-08-03] MEDS ORDERED: Bumetanide2 MG PO (12:39)
[2019-08-03] MEDS ORDERED: FERSU300 PO (12:39)
[2019-08-03] MEDS ORDERED: Vitamin B-122000 MCG PO (12:39)
[2019-08-03] MEDS ORDERED: METO25ER PO (12:40)
[2019-08-03] MEDS ORDERED: GABA300 PO (12:40)
[2019-08-03] MEDS ORDERED: FOLI1 PO (12:40)
[2019-08-03] MEDS ORDERED: POTCHL20ER PO (12:40)
[2019-08-03] MEDS ORDERED: MELA3 PO (12:40)
[2019-08-03] MEDS ORDERED: Prazosin HCl2 MG PO (12:41)
[2019-08-03] MEDS ORDERED: RISP2 PO (12:41)
[2019-08-03] MEDS ORDERED: SERT50 PO (12:41)
[2019-08-03] MEDS ORDERED: Thiamine HCl100 MG PO (12:42)
[2019-08-03] MEDS ORDERED: SPIR25 PO (12:42)
[2019-08-03] MEDS ORDERED: TRAM50 PO (12:42)
[2019-08-03] MEDS ORDERED: Fish Oil 10001000 MG PO (14:33)
[2019-08-03] MEDS ORDERED: SAM E PO (14:34)
[2019-08-03] MEDS ORDERED: PROBIOTIC1 EAC4 PO (14:34)
[2019-08-04] MEDS ORDERED: Lopressor 25 mg25 MG PO (13:46)
== END 2019-07-08 09:30 | disposition home or self-care (01) ==
LOC: ER 19:36 → SURS 19:37
PROVIDERS: Physician Assistant; ADMIT Internal Medicine
DX: R07.89 Other chest pain (principal); I13.0 Hypertensive heart and chronic kidney disease with heart failure and stage 1 through stage 4 chronic kidney disease, or unspecified chronic kidney disease; I50.32 Chronic diastolic (congestive) heart failure; N18.3 Chronic kidney disease, stage 3 (moderate); J44.9 Chronic obstructive pulmonary disease, unspecified; I48.0 Paroxysmal atrial fibrillation; F43.10 Post-traumatic stress disorder, unspecified; F32.9 Major depressive disorder, single episode, unspecified; Z79.899 Other long term (current) drug therapy
CPT/HCPCS: 36415; 71046; 80053; 82550; 83880; 84484; 85025; 85027; 93005; 93010; 96365; 96372; 96375; 99285-25; G0378; J1650; J3010; J3480

== ENCOUNTER 2019-12-02 17:20 | Inpatient (IN) | payer OTHER, MEDICARE ==
[~2019-12-02] VITALS: Ht 182.9 cm; Wt 85.6 kg
[~2019-12-02 17:20] MED LIST changes: +ACIDOPHILUS1 EAC3 PO; +Bumetanide2 MG PO; +ELIQUIS5 MG PO; +FERSU300 PO; +Fish Oil 10001000 MG PO; +Lopressor 25 mg25 MG PO; +METO5 PO; +Prazosin HCl2 MG PO; +SERT50 PO; +SPIR25 PO; +TURMERIC 500 M1 EACH PO; +Thiamine HCl100 MG PO; +Vitamin B-122000 MCG PO
[2019-12-02] MEDS ORDERED: ELIQUIS5 MG PO (18:08)
[2019-12-02] MEDS ORDERED: SPIR25 PO (18:09)
[2019-12-02] MEDS ORDERED: Silvadene20 GM TOP (18:09)
[2019-12-02 20:13] LABS: BASOPHILS ABSOLUTE AUTO 0.08 K/mm3 (0.00-0.23); BASOPHILS PERCENT AUTO 1 % (0-2); EOSINOPHILS ABSOLUTE AUTO 0.33 K/mm3 (0.00-0.68); EOSINOPHILS PERCENT AUTO 3 % (0-6); Hematocrit 41.6 % (37.0-53.0); Hemoglobin 14.4 g/dL (13.5-17.5); IMMATURE GRAN ABSOLUTE AUTO 0.23 K/mm3 (0.00-0.10); IMMATURE GRAN PERCENT AUTO 2 % (0-1); LYMPHOCYTES ABSOLUTE AUTO 1.05 K/mm3 (0.84-5.20); LYMPHOCYTES PERCENT AUTO 10 % (21-46); MONOCYTES ABSOLUTE AUTO 1.15 K/mm3 (0.16-1.47); MONOCYTES PERCENT AUTO 11 % (4-13); Mean Corpuscular HGB 34.8 pg (26.0-34.0); Mean Corpuscular HGB Conc 34.6 g/dL (31.5-36.5); Mean Corpuscular Volume 101 fL (80-100); NEUTROPHILS ABSOLUTE AUTO 7.35 K/mm3 (1.96-9.15); NEUTROPHILS PERCENT AUTO 72 % (41-73); Platelet Count 109 K/mm3 (150-400); RDW Coefficient Variation 16.4 % (11.7-14.2); RDW Standard Deviation 60.2 fL (35.1-46.3); Red Blood Cell Count 4.14 M/mm3 (4.30-5.90); White Blood Cell Count 10.19 K/mm3 (4.00-11.30)
[2019-12-02 21:18] LABS: Albumin, Blood 2.6 g/dL (3.4-5.0); Albumin/Globulin Ratio 0.8 (0.8-1.8); Bilirubin, Total 0.9 mg/dL (0.1-1.0); Bun/Creatinine Ratio 49.7 (12.0-20.0); Creatinine, Blood 1.49 mg/dL (0.60-1.20); Globulin, Blood 3.1 g/dL (2.2-4.0); Magnesium, Blood 2.5 mg/dL (1.6-2.4); Potassium, Blood 2.5 mmol/L (3.5-5.5); Total Protein, Blood 5.7 g/dL (6.4-8.2)
[2019-12-03] MEDS ORDERED: THERA1 EACH PO (02:08)
[2019-12-03] MEDS ORDERED: OYSTER SHELL 51 EACH PO (02:11)
[2019-12-03] MEDS ORDERED: GLUC500 PO (02:12)
[2019-12-03] MEDS ORDERED: MILK THISTLE PO (02:16)
[2019-12-03] MEDS ORDERED: SAM E PO (02:17)
--- NOTE | 2019-12-03 04:23 | NUR ---
END SHIFT SUMMARY ASSUMED CARE OF PT AT 0020. PT IS A/O X3, DENIES N/T IN EXTREMITIES, PT R FOOT HAS FOOT DROP DUE TO PREVIOUS BACK SUGERIES. PT STATES HE HAS BACK PAIN BUT HE DIDNT HAVE ANY DURING THE NIGHT. HEART SOUNDS REGULAR, LUNG SOUNDS CLEAR. PT USES THE URINAL HIMSELF AT THE BEDSIDE. PT SLEPT T/O THE NIGHT. CALL LIGHT IN REACH, BED IN LOWEST POSTION, WILL CONTINUE TO MONITOR UNTIL DAYSHIFT NURSE ARRIVES.
[2019-12-03 04:41] LABS: Albumin, Blood 2.6 g/dL (3.4-5.0); Albumin/Globulin Ratio 0.8 (0.8-1.8); Bun/Creatinine Ratio 45.5 (12.0-20.0); Calcium, Blood 8.6 mg/dL (8.5-10.1); Creatinine, Blood 1.65 mg/dL (0.60-1.20); Globulin, Blood 3.2 g/dL (2.2-4.0); Potassium, Blood 3.2 mmol/L (3.5-5.5); Total Protein, Blood 5.8 g/dL (6.4-8.2)
--- NOTE | 2019-12-03 16:15 | NUR ---
HE HAS SLEPT ALL DAY EXCEPT FOR EATING AND USING THE URINAL OR GOING INTO THE BATHROOM. HE IS OX3 BUT IS NOT CLEAR-HEADED NOW LIKE HE WAS THIS MORNING. ALSO, HIS BATTERY IN HIS HEARING AIDS. HE IS VERY MOBILE. HE FEELS A LITTLE WEAK THOUGH. KNEE HIGH TEDS ON BILAT. HE WALKS WELL WITH A DROP FOOT. ADDITIONAL PO KCL GIVEN TODAY FOR LEVEL 3.2. IS NOT VISITING TODAY BECAUSE SHE IS AT HOME WITH A COUGH. FLUID RESTRICTION ONGOING WITH OUT PROBLEM.
--- NOTE | 2019-12-04 05:00 | NUR ---
SHIFT SUMMARY PT IS A 69 Y/O MALE, ADMITTED FOR METABOLIC ENCEPHALOPATHY. HE IS A&O X 3, THOUGH FORGETFUL AND CAN BE CONFUSED AT TIMES. PT IS A 1PA UP AND USES THE URINAL, THOUGH HAD TWO EPISODES OF INCONTINENCE DURING THE NIGHT. NO COMPLAINTS OF ACUTE PAIN, NAUSEA OR SOB. PT IS ON RA. BP WAS SLIGHTLY LOW DURING AM VITALS, AT 94/64. ALL OTHER VITALS STABLE. NO ACUTE CHANGES IN PT CONDITION NOTED DURING THE NIGHT. WILL CONTINUE TO MONITOR AND TREAT PER EMAR UNTIL HAND OFF TO DAY SHIFT RN.
[2019-12-04 05:08] LABS: Bun/Creatinine Ratio 53.4 (12.0-20.0); Calcium, Blood 8.3 mg/dL (8.5-10.1); Creatinine, Blood 1.46 mg/dL (0.60-1.20); Potassium, Blood 2.8 mmol/L (3.5-5.5)
--- NOTE | 2019-12-04 16:41 | NUR ---
REPORT GIVEN TO ANA TOVAR WHO WILL ASSUME CARE WHEN PT TRANSFERS TO ROOM 347. PT' SPOUSE NOTIFIED OF PT TRANSFER AT THIS TIME
--- NOTE | 2019-12-04 17:33 | NUR ---
SHIFT SUMMARY PT TRANSFERRED TO ROOM 347 VIA WHEELCHAIR WITH [employer] DEVELOPER ESCORT AT THIS TIME. PT AXOX4 AT BEGINNING OF SHIFT, THOUGH WHEN DR VILLARREAL WAS IN TO ASSESS PT, PT WAS SLOW TO RESPOND AND DROWSY. DR AWARE OF DECREASE IN LOC. VSS. PT TRANSFERRED TO SCU R/T INCREASE IN FALL RISK BECAUSE PT ATTEMPTS OOB VERY QUICKLY AND FORGETS LIMITATIONS. ANA GRIFFITH TO ASSUME CARE AT THIS TIME
--- NOTE | 2019-12-04 19:39 | NUR ---
SHIFT SUMMARY- PT TRANSFERED TO THE BACK ACHARYA FOR FALL RISK REASONS. PT HAS ENCEPHALOPATHY WITH ELEVATED AMONIA LEVELS, LACTULOSE INCREASED TO QID. PT HAVING LOOSE BOWEL THIS EVENING SAT ON THE COMODE FOR 30 MINUTES WITH HIS AT HIS SIDE. PT IS A FALL RISK BED AND CHAIR ALARMS IN THE ROOM. SPOUSE HELPS WITH SAFETY WHEN SHE CAN (SITTING WITH THE PT WHILE HE IS ON THE COMMODE). PASSED ON IN REPORT TO NIGHT RN.
--- NOTE | 2019-12-05 05:31 | NUR ---
SLEPT OFF AND ON MOST OF NIGHT WAKING TO USE BSC. STOCKINGS NOT IN PLACE DUE TO PATIENT IMPULSIVELY SWINGING FEET OUT OF BED DUE TO DIARRHEA AND RISK FOR FALLS. PATIENT WAS NAAUSEATED EARLY , HOWEVER WOULDN'T TAKE ANY ANTI EMETIC MEDICATION UNTIL AFTER MIDNIGHT WHEN HE HAD SMALL EMESIS OF SALIVA WITH BILE IN IT. AFTER THIS EPISODE, PATIENT HAD TWO MORE EPISODES OF BOWEL INCONTINENCE. NO COMPLAINTS OF PAIN OR DISCOMFORT. ABD MODERATELY DISTENDED AND QUITE FIRM. NON TENDER TO MILD PALPATION
[2019-12-05 05:50] LABS: BASOPHILS ABSOLUTE AUTO 0.03 K/mm3 (0.00-0.23); BASOPHILS PERCENT AUTO 0 % (0-2); EOSINOPHILS ABSOLUTE AUTO 0.09 K/mm3 (0.00-0.68); EOSINOPHILS PERCENT AUTO 1 % (0-6); Hematocrit 44.8 % (37.0-53.0); Hemoglobin 15.1 g/dL (13.5-17.5); IMMATURE GRAN ABSOLUTE AUTO 0.15 K/mm3 (0.00-0.10); IMMATURE GRAN PERCENT AUTO 1 % (0-1); LYMPHOCYTES ABSOLUTE AUTO 0.49 K/mm3 (0.84-5.20); LYMPHOCYTES PERCENT AUTO 3 % (21-46); MONOCYTES ABSOLUTE AUTO 1.04 K/mm3 (0.16-1.47); MONOCYTES PERCENT AUTO 7 % (4-13); Mean Corpuscular HGB 33.9 pg (26.0-34.0); Mean Corpuscular HGB Conc 33.7 g/dL (31.5-36.5); Mean Corpuscular Volume 100 fL (80-100); Mean Platelet Volume 10.6 fL (9.1-12.4); NEUTROPHILS ABSOLUTE AUTO 13.66 K/mm3 (1.96-9.15); NEUTROPHILS PERCENT AUTO 88 % (41-73); Platelet Count 142 K/mm3 (150-400); RDW Coefficient Variation 16.7 % (11.7-14.2); Red Blood Cell Count 4.46 M/mm3 (4.30-5.90); White Blood Cell Count 15.46 K/mm3 (4.00-11.30)
[2019-12-05 06:10] LABS: Albumin, Blood 2.7 g/dL (3.4-5.0); Albumin/Globulin Ratio 0.8 (0.8-1.8); Bilirubin, Total 1.8 mg/dL (0.1-1.0); Bun/Creatinine Ratio 49.7 (12.0-20.0); Calcium, Blood 8.8 mg/dL (8.5-10.1); Creatinine, Blood 1.49 mg/dL (0.60-1.20); Globulin, Blood 3.5 g/dL (2.2-4.0); Potassium, Blood 2.6 mmol/L (3.5-5.5); Total Protein, Blood 6.2 g/dL (6.4-8.2)
--- NOTE | 2019-12-05 08:00 | NUR ---
PT VERY LETARGIC AT THE START OF SHIFT RESP RATE 10 O2 SATS IN THE 90'S ALL VITALS WNL. CALLED DR VILLARREAL HE IS AWARE OF NM LETHARGY. STERNAL RUB REQUIRED TO ROUSE. NO AMMONIA LEVEL WAS CHECKED TODAY AND PT WBC COUNT WENT FROM 10 TO 15 OVER NIGHT. NEW ORDER FOR LACTIC AND AMMONIA LEVEL STAT.
--- NOTE | 2019-12-05 09:45 | NUR ---
RECIEVED A CALL FROM LAB PT LACTIC WAS CRITICAL AT 2.2 PT ALREADY HAS ABX RUNNING AT THIS TIME. DR AWARE OF CRITICAL VALUE SPOKE OF PT POTASSIUM LEVEL DOWN NOW TO 2.6 PT RECIEVED 60 PO POTASSIUM. NEW ORDER RECIEVED FOR 60MEQ IV POTASSIUM STAT. WILL STATR ONCE IT ARRIVES AFTER THE PT ABX ARE COMPLETE. PT WAS ROUSED ENOUGH TO EAT (WHEN FED AND CONSTANTLY REMINDED HE NEEDS TO BE AWAKE) PT WAS ABLE TP TAKE PO MEDS. HELD MEDICATIONS THAT WOULD WORSTEN PT LETHARGY AND POTENTIALLY RENDER HIM UNRESPONSIVE.
--- NOTE | 2019-12-05 10:10 | NUR ---
CALLED DR VILLARREAL TO REQUEST A ORDER FOR FLUIDS TO RUN CONCURRENTLY WITH THE POTASSIUM NEW ORDER RECIEVED FOR NS AT 200 ML PER HOUR. OK TO RUN CONCURRENTLY WITH THE POTASSIUM.
--- NOTE | 2019-12-05 12:48 | NUR ---
SPOKE TO DR VILLARREAL REQUESTED PARAMETERS FOR LASIX IV DOSE. NEW PARAMETERS RECIEVED HOLD FOR SBP LESS THAN 100. DR AWARE PT VITALS 111/72 WITH NS AT 200ML PER HOUR.
[2019-12-05 13:21] LABS: Magnesium, Blood 2.7 mg/dL (1.6-2.4); Phosphorus, Blood 4.3 mg/dL (2.5-4.9)
--- NOTE | 2019-12-05 17:16 | NUR ---
SPOKE TO DR VILLARREAL- SEPSIS BOLUS NEARLY COMPLETED. PT SLEEPING BUT MORE EASILY ROUSED. VITALS STABLE. NEW ORDER RECIEVED FOR POTASSIUM RECHECK AT 1800. PT HAS RECIEVED ALOT OF POTASSIUM T/O THE DAY. HOPES ARE THAT THE LEVEL WILL BE WNL. PT HAD A MAG AND PHOS CHECK DONE (D/T DIARRHEA) PHOS WAS NORMAL AND MAG WAS HIGH. WILL SPEAK TO DR VILLARREAL AGAIN AFTER REDRAW FOR POTASSIUM. PT HAS A HOME DOSE OF RISPERDAL 2MG. SPOKE TO THE SPOUSE ABOUT WHY THE PT IS TAKING THIS MEDICATION SHE SAID HE WAS TAKING THE MEDICATION FOR ITCHING, SHE STATED HE HAD SORES ALL OVER THAT HE KEPT PICKING AT, THIS MEDICINE HELPED. HOWEVER THE PT HOME DOSE IS 2MG UNCERTAIN FOR THE 5MG DOSE ORDERED HERE. SPOKE TO THIS MORNING BRIEFLY ABOUT THIS MEDICATION, DR STATED TO HOLD OFF THIS MEDICINE WILL MAKE THE PT MORE SOMNOLENT. PT DID NOT RECIEVE THE MEDICATION LAST NIGHT.
--- NOTE | 2019-12-05 18:21 | NUR ---
SHIFT SUMMARY- PT WAS SOMNOLENT THIS MORNING AND HAS HAD SOME CRITICAL LACTICS TODAY. FLUIDS GIVEN FOR SEPSIS BOLUS SEE EMAR FOR DETAILS, IV LASIX TO PREVENT FLUID OVER LOAD, PT RECIEVED 60MEQ PO POTASSIUM (THIS IS HIS NORMAL DOSE) POTASSIUM WAS 2.6. PT RECIEVED 60 MEQ OF IV POTASSIUM WELL. TREMMORS WERE MORE PRONOUNCED MAG WAS NOT LOW. SEE PREVIOUS NOTES FOR DETAILS. PT SEEMS FAR MORE ALERT THIS EVENING. CHEST XRAY CONFIRMED RIGHT LOWER LOBE PNEUMONIA. PT SPOUSE CALLED TODAY SHE WENT TO THE URGENT CARE AND STATED SHE WILL NOT BE COMING IN BECAUSE SHE TOO HAS PNEUMONIA. PT SPOUSE WILL COME IN WHEN SHE IS FEELING A LITTLE BETTER. SHE CALLED AND TOLD THE PT HE IS AWARE SHE IS SICK TOO.
--- NOTE | 2019-12-05 18:35 | NUR ---
SPOKE TO DR VILLARREAL- PT POTASSIUM UP TO WNL AT 3.7. SPOKE ABOUT THE AMOUNT OF PO AND IV POTASSIUM PT RECIEVED TODAY. NOW THE PT IS RECIEVING IV FLUIDS AND IV LASIX. RECIEVED A NEW ORDER FOR 60 MEQ POTASSIUM CHLORIDE DAILY WITH A 40MEQ DOSE NOW. SPOKE ABOUT THE RISPERDAL RECIEVED ORDER TO DC FOR NOW.
[2019-12-06 05:31] LABS: International Normalized Ratio 1.31; Prothrombin Time Results 13.8 Sec (9.7-11.5)
--- NOTE | 2019-12-06 07:00 | NUR ---
ASSUMED CARE OF PT- PT ALERT AND ORIENTED X4. HE IS ABLE TO TELL THE YEAR NAMES OF FAMILY. PT IS SPEAKING IN FULL SCENTENCES WITH HIS EYES OPEN. TREMORS STILL NOTED BUT ARE FAR LESS THAN THE NOTED ONES YESTERDAY. PT HAD TO BE FED FOR ALL MEALS YESTERDAY, HE WAS UNABLE TO DO THIS HIMSELF. IT APPEARS THE PT MAY BE ABLE TO DO THIS TODAY. PT WAS ABLE TO TELL STAFF THAT HIS IS HOME WITH PNEUMONIA AND THAT IS WHY SHE IS NOT HERE. THIS IS A GREAT IMPROVEMENT. PT STILL FORGETS TO CALL FOR ASSISTANCE, BED ALARM FOR SAFETY.
--- NOTE | 2019-12-06 07:36 | NUR ---
SPOKE TO DR VILLARREAL- PT HAD A LAB DRAW FOR PT AND INR BUT NO CBC BMP OR AMMONIA. RECIEVED ORDER FOR NEW LABS FOR ALL OF THESE. NOTICED ACTIVE ORDER STILL VISIBLE FOR BLOOD CULTURE FROM 12-05-2019 AT 1223 UNCERTAIN IF THEY WERE DRAWN STILL SHOWS ACTIVE IN THE COMPUTER. CALLED LAB TO VERIFY AWAITING A CALL BACK.
--- NOTE | 2019-12-06 07:52 | NUR ---
RECIEVED A CALL FROM HEMATOLOGY- BLOOD CULTURE WAS DRAWN YESTERDAY AT 1230. THE RESULTS ARE PENDING IN THEIR SYSTEM; SINCE THERE ARE NO RESULTS YET IT SHOWS AN ACTIVE ORDER IN ORDER MANAGEMENT.
[2019-12-06 07:57] LABS: BASOPHILS ABSOLUTE AUTO 0.08 K/mm3 (0.00-0.23); BASOPHILS PERCENT AUTO 1 % (0-2); EOSINOPHILS ABSOLUTE AUTO 0.25 K/mm3 (0.00-0.68); EOSINOPHILS PERCENT AUTO 2 % (0-6); Hematocrit 41.6 % (37.0-53.0); Hemoglobin 13.7 g/dL (13.5-17.5); IMMATURE GRAN ABSOLUTE AUTO 0.13 K/mm3 (0.00-0.10); IMMATURE GRAN PERCENT AUTO 1 % (0-1); LYMPHOCYTES ABSOLUTE AUTO 0.96 K/mm3 (0.84-5.20); LYMPHOCYTES PERCENT AUTO 8 % (21-46); MONOCYTES ABSOLUTE AUTO 1.34 K/mm3 (0.16-1.47); MONOCYTES PERCENT AUTO 11 % (4-13); Mean Corpuscular HGB 33.6 pg (26.0-34.0); Mean Corpuscular HGB Conc 32.9 g/dL (31.5-36.5); Mean Corpuscular Volume 102 fL (80-100); Mean Platelet Volume 10.2 fL (9.1-12.4); NEUTROPHILS ABSOLUTE AUTO 9.82 K/mm3 (1.96-9.15); NEUTROPHILS PERCENT AUTO 78 % (41-73); Platelet Count 138 K/mm3 (150-400); RDW Coefficient Variation 16.5 % (11.7-14.2); RDW Standard Deviation 61.9 fL (35.1-46.3); Red Blood Cell Count 4.08 M/mm3 (4.30-5.90); White Blood Cell Count 12.58 K/mm3 (4.00-11.30)
[2019-12-06 08:12] LABS: Bun/Creatinine Ratio 47.8 (12.0-20.0); Calcium, Blood 8.1 mg/dL (8.5-10.1); Creatinine, Blood 1.57 mg/dL (0.60-1.20); Potassium, Blood 3.5 mmol/L (3.5-5.5)
--- NOTE | 2019-12-06 12:40 | NUR ---
PT HAS A DISCHARGE ORDER IN THE COMPUTER- DR VILLARREAL CAME TO SEE THE PT. 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 PT ASKED FOR AN ADDITIONAL DAY, AND EXPRESSED CONCERN ABOUT HAVING TO COME RIGHT BACK. PT WOULD LIKE TO BE SURE HE IS BETTER BEFORE HE LEAVES. OK TO HOLD DISCHARGE UNTIL THE MORNING PER DR VILLARREAL. NEW ORDER FOR PT/OT EVALUATE AND TREAT. PHYSICAL THERAPIST IN THE ROOM WITH THE PT NOW.
--- NOTE | 2019-12-06 15:03 | NUR ---
PT STILL ALERT AND ORIENTED THIS AFTERNOON. PT NO LONGER USING THE BEDSIDE COMMODE; NOW AMBULATING SBA TO THE BATHROOM. PT HAS HAD NO C/O PAIN T/O THE DAY. PT GOT UP AND AMBULATED WITH THE PHYSICAL THERAPIST AND WALKED TO THE END OF THE ACHARYA AND BACK TO HIS ROOM. PHYSICAL THERAPY RECOMENDS HOME HEALTH UPON DISCHARGE. DISCHARGE WILL BE COMPLETED TODAY SO PT MAY DC HOME WITH HOME HEALTH TOMORROW MORNING. PT SON JUST GOT INTO TOWN AND IS PREPARING THE PT HOME FOR HIS RETURN. PT STATED HIS SON CAN PICK HIM UP TOMORROW WHEN IT IS TIME FOR HIM TO DISCHARGE.
[2019-12-06] MEDS ORDERED: AZIT500 PO (16:10)
[2019-12-06] MEDS ORDERED: BENZ100A PO (16:11)
[2019-12-06] MEDS ORDERED: CEFP200 PO (16:12)
[2019-12-06] MEDS ORDERED: FOLI1 PO (16:13)
[2019-12-06] MEDS ORDERED: FURO20 PO (16:14)
[2019-12-06] MEDS ORDERED: GABA300 PO (16:15)
[2019-12-06] MEDS ORDERED: GUAI600T33 PO (16:16)
[2019-12-06] MEDS ORDERED: LACT10SY PO (16:17)
[2019-12-06] MEDS ORDERED: METO25 PO (16:20)
[2019-12-06] MEDS ORDERED: NEOM500 PO (16:22)
[2019-12-06] MEDS ORDERED: ONDA4 PO (16:22)
[2019-12-06] MEDS ORDERED: POTA10T PO (16:24)
--- NOTE | 2019-12-06 18:41 | NUR ---
SHIFT SUMMARY- PT ALERT AND ORIENTED. PT HAS DISCHARGE ORDERS IN THE CHART. PLAN IS FOR HIM TO GO HOME TO THE MORNING. PT SON ARRIVED TODAY AND HAS MADE ARRANGEMENTS FOR THE PT TO COME HOME TOMORROW. PT AWARE OF DISCHARGE PLANS. PT IS VERY HAPPY ABOUT GOING HOME TOMORROW. PT ONLY HAD ONE BM TODAY SO BOTH DOSES OF LACTULOSE WERE GIVEN.
[2019-12-07 05:23] LABS: BASOPHILS ABSOLUTE AUTO 0.08 K/mm3 (0.00-0.23); BASOPHILS PERCENT AUTO 1 % (0-2); EOSINOPHILS ABSOLUTE AUTO 0.36 K/mm3 (0.00-0.68); EOSINOPHILS PERCENT AUTO 3 % (0-6); Hematocrit 39.5 % (37.0-53.0); Hemoglobin 13.3 g/dL (13.5-17.5); IMMATURE GRAN ABSOLUTE AUTO 0.18 K/mm3 (0.00-0.10); IMMATURE GRAN PERCENT AUTO 2 % (0-1); LYMPHOCYTES ABSOLUTE AUTO 1.08 K/mm3 (0.84-5.20); LYMPHOCYTES PERCENT AUTO 9 % (21-46); MONOCYTES ABSOLUTE AUTO 1.33 K/mm3 (0.16-1.47); MONOCYTES PERCENT AUTO 11 % (4-13); Mean Corpuscular HGB 33.8 pg (26.0-34.0); Mean Corpuscular HGB Conc 33.7 g/dL (31.5-36.5); Mean Corpuscular Volume 100 fL (80-100); Mean Platelet Volume 10.2 fL (9.1-12.4); NEUTROPHILS PERCENT AUTO 74 % (41-73); Platelet Count 116 K/mm3 (150-400); RDW Coefficient Variation 16.1 % (11.7-14.2); RDW Standard Deviation 59.7 fL (35.1-46.3); Red Blood Cell Count 3.94 M/mm3 (4.30-5.90); White Blood Cell Count 11.73 K/mm3 (4.00-11.30)
[2019-12-07 05:35] LABS: International Normalized Ratio 1.23
[2019-12-07 05:44] LABS: Albumin, Blood 2.1 g/dL (3.4-5.0); Albumin/Globulin Ratio 0.7 (0.8-1.8); Bilirubin, Total 0.8 mg/dL (0.1-1.0); Bun/Creatinine Ratio 44.6 (12.0-20.0); Calcium, Blood 7.8 mg/dL (8.5-10.1); Creatinine, Blood 1.39 mg/dL (0.60-1.20); Potassium, Blood 2.9 mmol/L (3.5-5.5); Total Protein, Blood 5.1 g/dL (6.4-8.2)
--- NOTE | 2019-12-07 05:49 | NUR ---
12/07/19 0545 PT HAD SEVERAL LOOSE BM'S TONIGHT. VITALS STABLE. PT LIKES EATING POPSICLES AND ICE CREAM THROUGHOUT NIGHT. VOIDING WELL WHEN HE IS ABLE TO STAND TO VOID. PT HOPING TO GO HOME THIS AM WITH SON.
--- NOTE | 2019-12-07 12:04 | NUR ---
DISCHARGE PT IS A/O X4 THIS AM, PLEASANT AFFECT, STATE HOPEFUL TO GO HOME TODAY. K+ 2.9, DR CHACKOTRATE ORDER EXTRA 40MEQ, IN TO SEE PT, STATE HE MAY GO HOME TODAY, PLACE D/C ORDERS, RE-ENFORCE LACTULOSE INSTRUCTION. ORDER HOME O2 EVAL PRIOR TO D/C. HEMODIALYSIS RN CONFIRM [facility]. ORDERS/SCRIPTS FAXED TO IN PHARMACY/REQUEST. D/C INSTRUCT REVIEWED w EMPHAISIS ON COMPLETING ANTIBX. IV SITES BILAT D/C INTACT. PT WAITING FAMILY FOR TRANSPORTATION HOME. HE STATE APPRECIATION.
--- NOTE | 2019-12-07 13:09 | NUR ---
PT IN FOR TRANSPORT HOME, REVIEWED D/C INSTRUCT w HER & ANSWERED QUESTIONS. PT DRESS IND. W/C [facility] PROVIDED.
== END 2019-12-07 13:27 | disposition home health service (06) | DRG 441 ==
LOC: ER 17:20 → MEDS 22:29
PROVIDERS: Emergency Medicine; Family Medicine; Internal Medicine; ADMIT Hospitalist
DX: K72.90 Hepatic failure, unspecified without coma (principal); G93.41 Metabolic encephalopathy; J18.9 Pneumonia, unspecified organism; A41.9 Sepsis, unspecified organism; N17.9 Acute kidney failure, unspecified; J44.0 Chronic obstructive pulmonary disease with (acute) lower respiratory infection; N18.3 Chronic kidney disease, stage 3 (moderate); K74.60 Unspecified cirrhosis of liver; E87.6 Hypokalemia; R26.89 Other abnormalities of gait and mobility; G47.33 Obstructive sleep apnea (adult) (pediatric); I48.0 Paroxysmal atrial fibrillation; Z87.891 Personal history of nicotine dependence
CPT/HCPCS: 36415; 36416; 71045; 71046; 76705; 80048; 80053; 82140; 83605; 83735; 84100; 84132; 85025; 85610; 93005; 93010; 94761; 96365; 97110; 97116; 97161; 99285-25; A9270-GY; J0696; J1940; J2405; J3370; J3480; J7030

== ENCOUNTER 2019-12-09 13:03 | Emergency (ER) | payer OTHER, MEDICARE ==
[~2019-12-09] VITALS: Ht 182.9 cm; Wt 90.7 kg
[~2019-12-09 13:03] MED LIST changes: +AZIT500 PO; +BENZ100A PO; +CEFP200 PO; +FURO20 PO; +GLUC500 PO; +GUAI600T33 PO; +METO25 PO; +MILK THISTLE PO; +NEOM500 PO; +ONDA4 PO; +OYSTER SHELL 51 EACH PO; +POTA10T PO; +Silvadene20 GM TOP; +THERA1 EACH PO
== END 2019-12-09 14:05 | disposition home or self-care (01) ==
LOC: ER 13:03
DX: E87.70 Fluid overload, unspecified (principal); I11.0 Hypertensive heart disease with heart failure; I50.9 Heart failure, unspecified; I48.91 Unspecified atrial fibrillation; J44.9 Chronic obstructive pulmonary disease, unspecified; K74.60 Unspecified cirrhosis of liver; G47.30 Sleep apnea, unspecified; Z79.899 Other long term (current) drug therapy
CPT/HCPCS: 99283

== ENCOUNTER 2020-01-01 17:43 | Inpatient (IN) | payer OTHER, MEDICARE ==
[~2020-01-01] VITALS: Ht 182.9 cm; Wt 79.0 kg
[2020-01-01 18:25] LABS: BASOPHILS ABSOLUTE AUTO 0.04 K/mm3 (0.00-0.23); BASOPHILS PERCENT AUTO 0 % (0-2); EOSINOPHILS ABSOLUTE AUTO 0.31 K/mm3 (0.00-0.68); EOSINOPHILS PERCENT AUTO 3 % (0-6); Hematocrit 46.9 % (37.0-53.0); IMMATURE GRAN ABSOLUTE AUTO 0.09 K/mm3 (0.00-0.10); IMMATURE GRAN PERCENT AUTO 1 % (0-1); LYMPHOCYTES ABSOLUTE AUTO 0.92 K/mm3 (0.84-5.20); LYMPHOCYTES PERCENT AUTO 10 % (21-46); MONOCYTES ABSOLUTE AUTO 0.79 K/mm3 (0.16-1.47); MONOCYTES PERCENT AUTO 8 % (4-13); Mean Corpuscular HGB 34.9 pg (26.0-34.0); Mean Corpuscular HGB Conc 34.1 g/dL (31.5-36.5); Mean Corpuscular Volume 102 fL (80-100); Mean Platelet Volume 9.4 fL (9.1-12.4); NEUTROPHILS ABSOLUTE AUTO 7.43 K/mm3 (1.96-9.15); NEUTROPHILS PERCENT AUTO 78 % (41-73); Platelet Count 212 K/mm3 (150-400); RDW Coefficient Variation 17.4 % (11.7-14.2); RDW Standard Deviation 65.2 fL (35.1-46.3); Red Blood Cell Count 4.59 M/mm3 (4.30-5.90); White Blood Cell Count 9.58 K/mm3 (4.00-11.30)
[2020-01-01 18:48] LABS: Alanine Aminotransfer (ALT/SGP 36 U/L (12-78); Albumin, Blood 2.7 g/dL (3.4-5.0); Albumin/Globulin Ratio 0.8 (0.8-1.8); Alk Phos 194 U/L (50-136); Anion Gap 8 mmol/L (6-16); Aspartate Aminotrans (AST/SGOT 49 U/L (12-37); Bilirubin, Total 1.9 mg/dL (0.1-1.0); Blood Urea Nitrogen 70 mg/dL (8-24); Bun/Creatinine Ratio 44.9 (12.0-20.0); CO2, Blood 31 mmol/L (21-32); Calcium, Blood 10.3 mg/dL (8.5-10.1); Chloride, Blood 95 mmol/L (98-108); Creatinine, Blood 1.56 mg/dL (0.60-1.20); Globulin, Blood 3.5 g/dL (2.2-4.0); Glomerular Filtration Rate 47 (60-); Glucose, Blood 238 mg/dL (70-99); Potassium, Blood 3.2 mmol/L (3.5-5.5); Sodium, Blood 134 mmol/L (136-145); Total Protein, Blood 6.2 g/dL (6.4-8.2); Troponin I <0.015 ng/mL (0.000-0.040)
[2020-01-01 23:17] LABS: Source, Urine Clean Catch
[2020-01-01 23:21] LABS: Bilirubin, Urine Neg (Neg); Blood, Urine 1+ (Neg); Glucose Qualitative, Urine Neg (Neg); Ketones, Urine Neg (Neg); Leukocyte Esterase, Urine 1+ (Neg); Nitrite, Urine Neg (Neg); Protein, Urine Neg (Neg); Specific Gravity, Urine 1.005 (1.003-1.022); Urobilinogen, Urine NORM (Normal)
[2020-01-01 23:29] LABS: Appearance, Urine Clear (Clear); Color, Urine Yellow (P-Yellow)
[2020-01-01 23:30] LABS: Bacteria Not Seen /hpf; Squamous Epithelial Cells Rare /hpf (Few); White Blood Cells, Urine Rare /hpf (0-5)
--- NOTE | 2020-01-02 02:01 | NUR ---
PT ARRIVED TO UNIT AT APPROX 0130. PT TRANSFERED FROM [facility] TO BED WITH MINIMAL ASSIST. A LITTLE IMBALANCE PER PT. AT BEDSIDE TO GIVE REPORT PER PT DECREASED ABILITY TO RECALL OR ANSWER APPROPRIATLY. PT IMPULSIVE SINCE ARRIVAL STANDING WITHOUT CALL LIGHT, BED ALARM WENT OFF. BED ALARM TO REMAIN ON. REPORTED NEW PRESSURE ULCER ON LEFT BACK/FLANK SHE NOTICED TODAY. PHOTOS TAKEN, SPOTS NON BLANCHABLE. PT AA0X4 WITH INTERMITTENT CONFUSION. CALL LIGHT IN REACH.
--- NOTE | 2020-01-02 05:11 | NUR ---
SHIFT SUMMARY PT REMAINS AA0X4 WITH INTERMITTENT CONFUSION. PT NOT USING CALL LIGHT AND IMPULSIVE WITH GETTING OUT OF BED. PT UNSTEADY ON HIS FEET. WHEN GETTING OUT OF BED PT BECAME AGITATED WHEN THIS NURSE ATTEMPTED TO ASSIST HIM BACK TO BED. CONT OF BLADDER, USING URINAL TODAY. DENIES PAIN. BED ALARM ON AND CALL LIGHT ON REACH. PT REEDUCATED STEM LEAD FORMER LIGHT USE MULTIPLE TIMES.
[2020-01-02 05:58] LABS: Bun/Creatinine Ratio 41.4 (12.0-20.0); Calcium, Blood 9.7 mg/dL (8.5-10.1); Creatinine, Blood 1.57 mg/dL (0.60-1.20); Potassium, Blood 3.2 mmol/L (3.5-5.5)
--- NOTE | 2020-01-02 16:47 | NUR ---
PT HAS BEEN AOX3, BUT VERY SLEEPY TODAY. PT WAKES UP EASILY AND RESPONDS WELL TAKING NEEDED MEDICATIONS OR GETTING UP TO COMMODE. PT DOES NOT CALL WHEN HE HAS TO USE COMMODE AND BED ALARM IS IN PLACE. PT HAS HAD RUNNY BMS TODAY DUE TO LACTALOSE. PT DENIES PAIN AND GOES BACK TO SLEEP SOON HE IS IN BED. BED AT LOWEST POSITION AND CALL LIGHT WITHIN REACH. WILL CONTINUE TO MONITOR.
[2020-01-03 06:38] LABS: BASOPHILS ABSOLUTE AUTO 0.07 K/mm3 (0.00-0.23); BASOPHILS PERCENT AUTO 1 % (0-2); EOSINOPHILS ABSOLUTE AUTO 0.46 K/mm3 (0.00-0.68); EOSINOPHILS PERCENT AUTO 5 % (0-6); Hematocrit 45.1 % (37.0-53.0); Hemoglobin 15.3 g/dL (13.5-17.5); IMMATURE GRAN ABSOLUTE AUTO 0.08 K/mm3 (0.00-0.10); IMMATURE GRAN PERCENT AUTO 1 % (0-1); LYMPHOCYTES ABSOLUTE AUTO 1.04 K/mm3 (0.84-5.20); LYMPHOCYTES PERCENT AUTO 11 % (21-46); MONOCYTES PERCENT AUTO 11 % (4-13); Mean Corpuscular HGB 34.3 pg (26.0-34.0); Mean Corpuscular HGB Conc 33.9 g/dL (31.5-36.5); Mean Corpuscular Volume 101 fL (80-100); Mean Platelet Volume 9.7 fL (9.1-12.4); NEUTROPHILS ABSOLUTE AUTO 6.57 K/mm3 (1.96-9.15); NEUTROPHILS PERCENT AUTO 71 % (41-73); Platelet Count 163 K/mm3 (150-400); RDW Coefficient Variation 17.1 % (11.7-14.2); RDW Standard Deviation 63.4 fL (35.1-46.3); Red Blood Cell Count 4.46 M/mm3 (4.30-5.90); White Blood Cell Count 9.22 K/mm3 (4.00-11.30)
[2020-01-03 06:47] LABS: Albumin, Blood 2.5 g/dL (3.4-5.0); Albumin/Globulin Ratio 0.8 (0.8-1.8); Bilirubin, Total 2.4 mg/dL (0.1-1.0); Bun/Creatinine Ratio 37.4 (12.0-20.0); Calcium, Blood 9.4 mg/dL (8.5-10.1); Creatinine, Blood 1.55 mg/dL (0.60-1.20); Globulin, Blood 3.3 g/dL (2.2-4.0); Potassium, Blood 2.9 mmol/L (3.5-5.5); Total Protein, Blood 5.8 g/dL (6.4-8.2)
[2020-01-03 06:52] LABS: International Normalized Ratio 1.11; Prothrombin Time Results 11.8 Sec (9.7-11.5)
--- NOTE | 2020-01-03 07:20 | NUR ---
RECVD REPORT FROM PREVIOUS SHIFT RN MARIA EUGENIA, PT SLEEPING IN POSY VEST ON BED, BED ALARM ON, CALL LIGHT WITHIN REACH.
--- NOTE | 2020-01-03 07:33 | NUR ---
01/03/20 0600 RESTRAINTS REMAIN ON PT IS IMPULSIVE AND HIGH FALL RISK. DENIES ANY PAIN OR S/S. ONLY ALERT TO SELF THIS SHIFT. VITALS STABLE. HEART MONITOR SHOWS ATRIAL FLUTTER AT 106. HEART RATE DOES GO UP TO 12'-130'S WITH ACTIVITY.
--- NOTE | 2020-01-03 08:05 | NUR ---
PT STANDS AT BEDSIDE, ANSWERS QUESTIONS APPROPRIATELY, IS A/O X 4, UNDERSTANDS AND EXPLAINS SITUATION, REFUSES LACTULOSE. EDUCATED PT IN PURPOSE AND ACTION OF LACTULOSE TO BIND AND REMOVE AMMONIA WHICH IS EFFECTING PT'S THINKING PROCESS. PT STATES UNDERSTANDING AND REFUSES MEDICATION. PT UP IN CHAIR WITH TAB ALARM IN PLACE, USES URINAL APPROPRIATELY.
--- NOTE | 2020-01-03 18:23 | NUR ---
shift summary: vss, no acute changes. pt remained a/o x self/situation/place, follows directions. Pt appears to be showing some mental clearing despite ammonia level increased from yesterday. pt received ordered Lactulose this afternoon x 2 after refusing this AM. pt agrees to continue the lactulose. pt tolerated PO intake well with no n/v. pt up in chair for from breakfast to approx 1600. pt remains impulsive but follows directions/reorients well. This RN gave pt's update on pt's condition via telephone.
[2020-01-04 06:35] LABS: Bun/Creatinine Ratio 36.1 (12.0-20.0); Calcium, Blood 8.8 mg/dL (8.5-10.1); Creatinine, Blood 1.55 mg/dL (0.60-1.20)
[2020-01-04 06:37] LABS: Potassium, Blood 2.4 mmol/L (3.5-5.5)
--- NOTE | 2020-01-04 07:42 | NUR ---
01/04/20 0600 MORE COOPERATIVE THIS SHIFT BUT STILL FORGETS TO CALL FOR HELP UP. BED ALARM SOUNDED SEVERAL TIMES. VITALS STABLE. HAD ONLY 2 STOOLS LAST NIGHT.
[2020-01-04] MEDS ORDERED: Bumetanide2 MG PO (16:01)
--- NOTE | 2020-01-04 17:19 | NUR ---
PT DISCHARGED AT 1700. PT HAS BEEN AOX4 AND COOPERATIVE OF CARE TODAY. PT HAS BEEN A ONE PERSON ASSIST TO RESTROOM AND DOES MUCH BETTER WITH WALKER. PT AND WERE INSTRUCTED TO USE WALKER EVERY TIME HE GETS UP. ALL PAPERWORK AND MEDICATIONS REVIEWED AND EDUCATIONAL MATERIAL SENT WITH PT. NO DISTRESS NOTED AND PERSONAL BELONGINGS WERE WITH PT. MEDICATION FAXED TO PHARMACY. PT ESCORTED VIA WHEEL CHAIR BY THIS PIPE SMO[employer] MACHINE OFFBEARER.
== END 2020-01-04 17:03 | DRG 442 ==
LOC: ER 17:43 → MEDS 17:44
PROVIDERS: Family Medicine; Internal Medicine; Physician Assistant; ADMIT Internal Medicine
DX: K72.90 Hepatic failure, unspecified without coma (principal); I13.0 Hypertensive heart and chronic kidney disease with heart failure and stage 1 through stage 4 chronic kidney disease, or unspecified chronic kidney disease; N18.3 Chronic kidney disease, stage 3 (moderate); J44.9 Chronic obstructive pulmonary disease, unspecified; E87.6 Hypokalemia; G47.33 Obstructive sleep apnea (adult) (pediatric); I48.0 Paroxysmal atrial fibrillation; K74.60 Unspecified cirrhosis of liver; E86.0 Dehydration; I50.9 Heart failure, unspecified; Z74.09 Other reduced mobility; Z79.899 Other long term (current) drug therapy; Z87.891 Personal history of nicotine dependence
CPT/HCPCS: 36415; 80048; 80053; 81001; 82140; 84132; 84484; 85025; 85610; 93005; 93010; 96360; 96361; 97162; 97530; 99285-25; A9270-GY; G0378; J3480; J7030

== ENCOUNTER 2020-01-11 20:30 | Inpatient (IN) | payer OTHER, MEDICARE ==
[~2020-01-11] VITALS: Ht 167.6 cm; Wt 75.8 kg
[2020-01-11 20:55] LABS: Source, Urine Clean Catch
[2020-01-11 21:00] LABS: Appearance, Urine Clear (Clear); Bilirubin, Urine Neg (Neg); Blood, Urine 2+ (Neg); Color, Urine Yellow (P-Yellow); Glucose Qualitative, Urine Neg (Neg); Ketones, Urine Neg (Neg); Leukocyte Esterase, Urine Neg (Neg); Nitrite, Urine Neg (Neg); Protein, Urine Neg (Neg); Urobilinogen, Urine NORM (Normal)
[2020-01-11 21:01] LABS: BASOPHILS ABSOLUTE AUTO 0.06 K/mm3 (0.00-0.23); BASOPHILS PERCENT AUTO 1 % (0-2); EOSINOPHILS ABSOLUTE AUTO 0.32 K/mm3 (0.00-0.68); EOSINOPHILS PERCENT AUTO 3 % (0-6); Hematocrit 48.7 % (37.0-53.0); Hemoglobin 17.3 g/dL (13.5-17.5); IMMATURE GRAN ABSOLUTE AUTO 0.07 K/mm3 (0.00-0.10); IMMATURE GRAN PERCENT AUTO 1 % (0-1); LYMPHOCYTES ABSOLUTE AUTO 1.48 K/mm3 (0.84-5.20); LYMPHOCYTES PERCENT AUTO 13 % (21-46); MONOCYTES ABSOLUTE AUTO 1.12 K/mm3 (0.16-1.47); MONOCYTES PERCENT AUTO 10 % (4-13); Mean Corpuscular HGB 34.2 pg (26.0-34.0); Mean Corpuscular HGB Conc 35.5 g/dL (31.5-36.5); NEUTROPHILS ABSOLUTE AUTO 8.54 K/mm3 (1.96-9.15); NEUTROPHILS PERCENT AUTO 74 % (41-73); Platelet Count 254 K/mm3 (150-400); RDW Coefficient Variation 15.9 % (11.7-14.2); RDW Standard Deviation 56.9 fL (35.1-46.3); Red Blood Cell Count 5.06 M/mm3 (4.30-5.90); White Blood Cell Count 11.59 K/mm3 (4.00-11.30)
[2020-01-11 21:08] LABS: Mean Corpuscular Volume 96 fL (80-100)
[2020-01-11 21:11] LABS: Squamous Epithelial Cells Not Seen /hpf (Few); White Blood Cells, Urine 0-2 /hpf (0-5)
[2020-01-11 21:12] LABS: Bacteria Few /hpf; Hyaline Casts 0-2 /lpf (0-2)
[2020-01-11 21:33] LABS: Albumin, Blood 3.2 g/dL (3.4-5.0); Albumin/Globulin Ratio 0.8 (0.8-1.8); Bilirubin, Total 1.8 mg/dL (0.1-1.0); Bun/Creatinine Ratio 48.3 (12.0-20.0); Calcium, Blood 13.2 mg/dL (8.5-10.1); Creatinine, Blood 1.47 mg/dL (0.60-1.20); Globulin, Blood 3.9 g/dL (2.2-4.0); Potassium, Blood 2.7 mmol/L (3.5-5.5); Total Protein, Blood 7.1 g/dL (6.4-8.2)
[2020-01-11] MEDS ORDERED: MELA3 PO (21:52)
[2020-01-11] MEDS ORDERED: VITAMIN B-1100 M1 PO (21:53)
[2020-01-11] MEDS ORDERED: NEURONTIN300 MG PO (21:53)
[2020-01-11] MEDS ORDERED: METO2.5 PO (21:53)
[2020-01-11] MEDS ORDERED: ELIQUIS5 M3 PO (21:53)
[2020-01-11] MEDS ORDERED: FERSU300 PO (21:53)
[2020-01-11] MEDS ORDERED: VITAMIN B-121000 MC2 PO (21:53)
[2020-01-12 01:17] LABS: International Normalized Ratio 1.02; Prothrombin Time Results 10.9 Sec (9.7-11.5)
[2020-01-12 03:36] LABS: U Amphetamine Screen Not Detected; U Barbituate Screen Not Detected; U Benzodiazapine Screen Not Detected; U Buprenorphine Screen Not Detected; U Cannabinoids Screen Not Detected; U Cocaine Screen Not Detected; U Methadone Screen Not Detected; U Methamphetamine Screen Not Detected; U Opiates Screen Not Detected; U Oxycodone Screen Not Detected; U Phencyclidine Screen Not Detected; U Propoxyphene Screen Not Detected
[2020-01-12 05:36] LABS: Hematocrit 47.9 % (37.0-53.0); Hemoglobin 16.6 g/dL (13.5-17.5); Mean Corpuscular HGB 33.7 pg (26.0-34.0); Mean Corpuscular HGB Conc 34.7 g/dL (31.5-36.5); Mean Corpuscular Volume 97 fL (80-100); Mean Platelet Volume 9.3 fL (9.1-12.4); Platelet Count 233 K/mm3 (150-400); RDW Coefficient Variation 16.2 % (11.7-14.2); RDW Standard Deviation 58.2 fL (35.1-46.3); Red Blood Cell Count 4.92 M/mm3 (4.30-5.90); White Blood Cell Count 13.33 K/mm3 (4.00-11.30)
[2020-01-12 06:10] LABS: Albumin, Blood 3.1 g/dL (3.4-5.0); Albumin/Globulin Ratio 0.8 (0.8-1.8); Bilirubin, Total 2.1 mg/dL (0.1-1.0); Bun/Creatinine Ratio 49.3 (12.0-20.0); Calcium, Blood 12.4 mg/dL (8.5-10.1); Creatinine, Blood 1.42 mg/dL (0.60-1.20); Globulin, Blood 3.7 g/dL (2.2-4.0); Potassium, Blood 3.2 mmol/L (3.5-5.5); Total Protein, Blood 6.8 g/dL (6.4-8.2)
[2020-01-12 18:00] LABS: Bun/Creatinine Ratio 46.9 (12.0-20.0); Calcium, Blood 12.5 mg/dL (8.5-10.1); Creatinine, Blood 1.6 mg/dL (0.60-1.20); Potassium, Blood 3.2 mmol/L (3.5-5.5)
[2020-01-13 05:30] LABS: Bun/Creatinine Ratio 41.8 (12.0-20.0); Calcium, Blood 11.2 mg/dL (8.5-10.1); Creatinine, Blood 1.7 mg/dL (0.60-1.20); Potassium, Blood 2.8 mmol/L (3.5-5.5)
[2020-01-13 15:11] LABS: Bun/Creatinine Ratio 42.8 (12.0-20.0); Calcium, Blood 11.1 mg/dL (8.5-10.1); Creatinine, Blood 1.8 mg/dL (0.60-1.20); Potassium, Blood 2.7 mmol/L (3.5-5.5)
[2020-01-14 08:53] LABS: Bun/Creatinine Ratio 43.5 (12.0-20.0); Calcium, Blood 10.5 mg/dL (8.5-10.1); Creatinine, Blood 1.84 mg/dL (0.60-1.20); Potassium, Blood 3.2 mmol/L (3.5-5.5)
[2020-01-14 16:12] LABS: Bun/Creatinine Ratio 44.7 (12.0-20.0); Calcium, Blood 9.8 mg/dL (8.5-10.1); Creatinine, Blood 1.7 mg/dL (0.60-1.20); Potassium, Blood 3.6 mmol/L (3.5-5.5)
[2020-01-15 04:51] LABS: Bun/Creatinine Ratio 44.4 (12.0-20.0); Calcium, Blood 9.6 mg/dL (8.5-10.1); Creatinine, Blood 1.51 mg/dL (0.60-1.20); Potassium, Blood 3.4 mmol/L (3.5-5.5)
[2020-01-16 04:58] LABS: BASOPHILS ABSOLUTE AUTO 0.07 K/mm3 (0.00-0.23); BASOPHILS PERCENT AUTO 1 % (0-2); EOSINOPHILS ABSOLUTE AUTO 0.49 K/mm3 (0.00-0.68); EOSINOPHILS PERCENT AUTO 6 % (0-6); Hematocrit 41.5 % (37.0-53.0); Hemoglobin 14.2 g/dL (13.5-17.5); IMMATURE GRAN ABSOLUTE AUTO 0.16 K/mm3 (0.00-0.10); IMMATURE GRAN PERCENT AUTO 2 % (0-1); LYMPHOCYTES PERCENT AUTO 15 % (21-46); MONOCYTES ABSOLUTE AUTO 0.82 K/mm3 (0.16-1.47); MONOCYTES PERCENT AUTO 9 % (4-13); Mean Corpuscular HGB 33.9 pg (26.0-34.0); Mean Corpuscular HGB Conc 34.2 g/dL (31.5-36.5); Mean Corpuscular Volume 99 fL (80-100); Mean Platelet Volume 9.7 fL (9.1-12.4); NEUTROPHILS ABSOLUTE AUTO 6.11 K/mm3 (1.96-9.15); NEUTROPHILS PERCENT AUTO 68 % (41-73); Platelet Count 138 K/mm3 (150-400); RDW Coefficient Variation 16.2 % (11.7-14.2); RDW Standard Deviation 59.7 fL (35.1-46.3); Red Blood Cell Count 4.19 M/mm3 (4.30-5.90); White Blood Cell Count 8.95 K/mm3 (4.00-11.30)
[2020-01-16 05:16] LABS: Albumin, Blood 2.6 g/dL (3.4-5.0); Albumin/Globulin Ratio 0.9 (0.8-1.8); Bilirubin, Total 1.3 mg/dL (0.1-1.0); Bun/Creatinine Ratio 50.4 (12.0-20.0); Calcium, Blood 9.3 mg/dL (8.5-10.1); Creatinine, Blood 1.29 mg/dL (0.60-1.20); Globulin, Blood 2.8 g/dL (2.2-4.0); Magnesium, Blood 2.4 mg/dL (1.6-2.4); Potassium, Blood 3.5 mmol/L (3.5-5.5); Total Protein, Blood 5.4 g/dL (6.4-8.2)
[2020-01-17 04:29] LABS: BASOPHILS PERCENT AUTO 1 % (0-2); EOSINOPHILS ABSOLUTE AUTO 0.42 K/mm3 (0.00-0.68); EOSINOPHILS PERCENT AUTO 5 % (0-6); Hemoglobin 14.7 g/dL (13.5-17.5); IMMATURE GRAN ABSOLUTE AUTO 0.15 K/mm3 (0.00-0.10); IMMATURE GRAN PERCENT AUTO 2 % (0-1); LYMPHOCYTES ABSOLUTE AUTO 1.38 K/mm3 (0.84-5.20); LYMPHOCYTES PERCENT AUTO 16 % (21-46); MONOCYTES ABSOLUTE AUTO 0.95 K/mm3 (0.16-1.47); MONOCYTES PERCENT AUTO 11 % (4-13); Mean Corpuscular HGB 34.1 pg (26.0-34.0); Mean Corpuscular HGB Conc 34.2 g/dL (31.5-36.5); Mean Corpuscular Volume 100 fL (80-100); Mean Platelet Volume 9.8 fL (9.1-12.4); NEUTROPHILS ABSOLUTE AUTO 5.41 K/mm3 (1.96-9.15); NEUTROPHILS PERCENT AUTO 64 % (41-73); Platelet Count 150 K/mm3 (150-400); RDW Coefficient Variation 16.6 % (11.7-14.2); RDW Standard Deviation 60.4 fL (35.1-46.3); Red Blood Cell Count 4.31 M/mm3 (4.30-5.90); White Blood Cell Count 8.41 K/mm3 (4.00-11.30)
[2020-01-17 05:04] LABS: Albumin, Blood 2.6 g/dL (3.4-5.0); Albumin/Globulin Ratio 0.9 (0.8-1.8); Bilirubin, Total 1.3 mg/dL (0.1-1.0); Bun/Creatinine Ratio 43.7 (12.0-20.0); Calcium, Blood 9.3 mg/dL (8.5-10.1); Creatinine, Blood 1.35 mg/dL (0.60-1.20); Globulin, Blood 2.9 g/dL (2.2-4.0); Potassium, Blood 3.9 mmol/L (3.5-5.5); Total Protein, Blood 5.5 g/dL (6.4-8.2)
[2020-01-18 04:23] LABS: BASOPHILS ABSOLUTE AUTO 0.07 K/mm3 (0.00-0.23); BASOPHILS PERCENT AUTO 1 % (0-2); EOSINOPHILS ABSOLUTE AUTO 0.37 K/mm3 (0.00-0.68); EOSINOPHILS PERCENT AUTO 4 % (0-6); Hematocrit 41.1 % (37.0-53.0); Hemoglobin 14.4 g/dL (13.5-17.5); IMMATURE GRAN ABSOLUTE AUTO 0.27 K/mm3 (0.00-0.10); IMMATURE GRAN PERCENT AUTO 3 % (0-1); LYMPHOCYTES ABSOLUTE AUTO 1.23 K/mm3 (0.84-5.20); LYMPHOCYTES PERCENT AUTO 14 % (21-46); MONOCYTES ABSOLUTE AUTO 0.95 K/mm3 (0.16-1.47); MONOCYTES PERCENT AUTO 11 % (4-13); Mean Corpuscular HGB 34.7 pg (26.0-34.0); Mean Corpuscular Volume 99 fL (80-100); Mean Platelet Volume 9.6 fL (9.1-12.4); NEUTROPHILS ABSOLUTE AUTO 5.83 K/mm3 (1.96-9.15); NEUTROPHILS PERCENT AUTO 67 % (41-73); Platelet Count 143 K/mm3 (150-400); RDW Coefficient Variation 16.9 % (11.7-14.2); RDW Standard Deviation 60.7 fL (35.1-46.3); Red Blood Cell Count 4.15 M/mm3 (4.30-5.90); White Blood Cell Count 8.72 K/mm3 (4.00-11.30)
[2020-01-18 04:54] LABS: Alanine Aminotransfer (ALT/SGP 47 U/L (12-78); Albumin, Blood 2.5 g/dL (3.4-5.0); Albumin/Globulin Ratio 0.9 (0.8-1.8); Alk Phos 190 U/L (50-136); Anion Gap 8 mmol/L (6-16); Aspartate Aminotrans (AST/SGOT 53 U/L (12-37); Bilirubin, Total 1.4 mg/dL (0.1-1.0); Blood Urea Nitrogen 53 mg/dL (8-24); Bun/Creatinine Ratio 44.5 (12.0-20.0); CO2, Blood 24 mmol/L (21-32); Calcium, Blood 8.9 mg/dL (8.5-10.1); Chloride, Blood 103 mmol/L (98-108); Creatinine, Blood 1.19 mg/dL (0.60-1.20); Globulin, Blood 2.9 g/dL (2.2-4.0); Glomerular Filtration Rate >60 (60-); Glucose, Blood 108 mg/dL (70-99); Potassium, Blood 3.8 mmol/L (3.5-5.5); Sodium, Blood 135 mmol/L (136-145); Total Protein, Blood 5.4 g/dL (6.4-8.2)
[2020-01-19 05:36] LABS: Alanine Aminotransfer (ALT/SGP 41 U/L (12-78); Albumin, Blood 2.4 g/dL (3.4-5.0); Albumin/Globulin Ratio 0.9 (0.8-1.8); Alk Phos 167 U/L (50-136); Anion Gap 8 mmol/L (6-16); Aspartate Aminotrans (AST/SGOT 50 U/L (12-37); Bilirubin, Total 1.3 mg/dL (0.1-1.0); Blood Urea Nitrogen 46 mg/dL (8-24); Bun/Creatinine Ratio 38.7 (12.0-20.0); CO2, Blood 25 mmol/L (21-32); Calcium, Blood 8.7 mg/dL (8.5-10.1); Chloride, Blood 103 mmol/L (98-108); Creatinine, Blood 1.19 mg/dL (0.60-1.20); Globulin, Blood 2.7 g/dL (2.2-4.0); Glomerular Filtration Rate >60 (60-); Glucose, Blood 75 mg/dL (70-99); Potassium, Blood 3.8 mmol/L (3.5-5.5); Sodium, Blood 136 mmol/L (136-145); Total Protein, Blood 5.1 g/dL (6.4-8.2)
== END 2020-01-20 10:52 | disposition hospice, home (50) | DRG 441 ==
LOC: ER 20:30 → MEDS 20:31 → ER 20:31 → MEDS 23:03 → ER 01-12 00:40 → MEDS 01-12 00:40
PROVIDERS: Emergency Medicine; Hospitalist; Internal Medicine; ADMIT Internal Medicine
DX: K72.90 Hepatic failure, unspecified without coma (principal); G92 Toxic encephalopathy; N17.9 Acute kidney failure, unspecified; J44.9 Chronic obstructive pulmonary disease, unspecified; Z87.891 Personal history of nicotine dependence; E86.0 Dehydration; E83.52 Hypercalcemia; E87.6 Hypokalemia; N18.3 Chronic kidney disease, stage 3 (moderate); G47.33 Obstructive sleep apnea (adult) (pediatric); I48.0 Paroxysmal atrial fibrillation; K74.69 Other cirrhosis of liver
CPT/HCPCS: 36415; 71045; 71046; 80048; 80053; 81001; 82140; 83690; 83735; 85025; 85027; 85610; 87040; 93005; 93010; 96365; 96375; 97116; 97162; 97166; 97530; 97535; 99285-25; A9270-GY; J1100; J1650; J3475; J3480; J7030